=== PATIENT | female | born 1970 | race Caucasian/White ===

== ENCOUNTER → 2019-03-22 09:25 | Outpatient (CLI) | payer OTHER, SELFPAY ==
[2019-03-22 10:23] LABS: Add Manual Diff / Slide Review NO; Basophils Absolute Auto 0 /uL (0-100); Basophils Percent Auto 0.4 % (0-2); Eosinophils Absolute Auto 100 /uL (0-450); Eosinophils Percent Auto 0.7 % (2-4); Hematocrit 33.3 % (36-46); Lymphocytes Absolute Auto 1000 /uL (1100-4500); Lymphocytes Percent Auto 10.5 % (25-40); Mean Corpuscular HGB Conc 32.9 % (30-36); Mean Corpuscular Volume 72.9 fL (80-100); Monocytes Absolute Auto 1100 /uL (0-900); Monocytes Percent Auto 10.6 % (3-14); Neutrophils Absolute Auto 7800 /uL (1500-7000); Neutrophils Percent Auto 77.8 % (50-75); Platelet Count 374 X10^3/uL (150-400); Red Blood Cell Count 4.57 X10^6/uL (4.0-5.2); Red Cell Distribution Width 17.5 % (11.6-14.8)
[2019-03-22 10:37] LABS: Alanine Aminotransferase 25 IU/L (9-52); Albumin Globulin Ratio 1.4 (1.0-2.8); Alkaline Phosphatase 53 U/L (38-126); Aspartate Aminotransferase 16 IU/L (14-36); BUN Creatinine Ratio 18.3 (6-22); Bilirubin Total 0.3 mg/dL (0.2-1.3); Blood Urea Nitrogen 11 mg/dL (7-17); C-Reactive Protein Quant 5.9 mg/dL (<1.0); Calcium 8.9 mg/dL (8.4-10.2); Carbon Dioxide 29 mmol/L (22-32); Chloride 94 mmol/L (98-107); Estimated Glomerular Filt Rate > 60.0 mL/min (>60); Globulin 2.8 g/dL (1.7-4.1); Glucose 117 mg/dL (70-100); HEMOLYSIS < 15 (0-50); Lipase 549 U/L (23-300); Potassium 3.9 mmol/L (3.4-5.1); Sodium 135 mmol/L (137-145); Total Protein 6.8 g/dL (6.3-8.2)
[2019-03-22 10:58] LABS: Erythrocyte Sedimentation Rate 22 MM/HR (0-20)
== END ==
PROVIDERS: Visit Provider Physician Assistant
DX: R10.9 Unspecified abdominal pain (principal)
CPT/HCPCS: 36415; 80053; 83690; 85025; 85651; 86140

== ENCOUNTER → 2019-03-22 13:52 | Outpatient (CLI) | payer OTHER, SELFPAY ==
--- NOTE | 2019-03-22 14:54 | DI.CT.S_ITS ---
PROCEDURE: CT ABDOMEN PELVIS W CON INDICATIONS: abdominal pain TECHNIQUE: After the administration of oral and intravenous contrast, 5 mm thick sections acquired from the diaphragms to the symphysis. 5 mm thick coronal and sagittal reformats were performed. For radiation dose reduction, the following was used: automated exposure control, adjustment of mA and/or kV according to patient size. COMPARISON: None. FINDINGS: Image quality: Excellent. ABDOMEN: Lung bases: Lung bases are clear. Heart size is normal. Solid organs: Liver is normal in size and enhancement. Gallbladder contracted otherwise unremarkable. Biliary system is non-dilated. Pancreas enhances normally. Spleen is normal in size and enhancement. No adrenal nodules. Kidneys are normal in size and enhancement, without hydronephrosis. Peritoneum and bowel: Stomach is grossly unremarkable. There is a distended appearance of the distal small bowel/terminal ileum measuring up to 4 cm. There is suggestion of long segment wall thickening. Ill-defined of soft tissue attenuation seen on image 65 series 2 measuring 4 x 3 cm raises the possibility of mass although statistically, this represents collapsed bowel. Few scattered air-fluid levels. No definite transition point Large amount of stool is present in the colon. No free fluid or air. Nodes and vessels: No retroperitoneal or mesenteric adenopathy. Aorta and inferior vena cava are normal in caliber. Small fat containing ventral hernia. PELVIS: Bladder grossly unremarkable. Miscellaneous: No inguinal hernias or adenopathy. Bones: No suspicious bony lesions. No vertebral body compression fractures. IMPRESSION: Mildly dilated distal small bowel loop/terminal ileum measuring 4 cm in diameter. Scattered air-fluid levels. The appearance raises the possibility of early/developing bowel obstruction. Given long segment terminal ileal wall thickening, infectious or inflammatory bowel disease cannot be excluded. Please correlate clinically. Focal soft tissue masslike appearance present in the region of the distal small bowel (image 65 series 2) while this could represent collapsed bowel cannot entirely exclude soft tissue mass therefore a short interval repeat CT could be obtained for further assessment. Large amount of stool seen throughout the colon. Dictated by: Mir Bhagat M.D. on 03/22/2019 at 15:13 Approved by: Mir Bhagat M.D. on 03/22/2019 at 15:27
== END ==
PROVIDERS: PCP Internal Medicine; Visit Provider Physician Assistant
DX: R10.9 Unspecified abdominal pain (principal)
CPT/HCPCS: 36415; 74177; 80053; 83690; 85025; 85651; 86140; Q9967

== ENCOUNTER 2019-03-26 21:31 | Inpatient (IN) | payer OTHER, SELFPAY ==
[2019-03-26 21:39] VITALS: BP 150/91; PULSE 94; RESP 18; TEMP 36.4; O2SAT 98; BMI 23.6
--- NOTE | 2019-03-26 21:55 | DI.RAD.S_ITS ---
PROCEDURE: XR ACUTE ABDOMEN SERIES INDICATIONS: Abdominal pain TECHNIQUE: One view chest and two views of the abdomen were acquired. COMPARISON: [facility], US, US ABDOMEN COMPLETE, 03/26/2019, 22:42. [facility], CT, CT ABDOMEN PELVIS W CON, 03/22/2019, 14:37. FINDINGS: Surgical changes and devices: None. Chest: Lungs are clear. Heart size is normal. No pleural effusions. No pneumoperitoneum. Abdomen: Bowel gas pattern is nonspecific. Focal loop of mildly prominent bowel within the central abdomen is noted. No suspicious calcifications. Visualized solid organ contours appear normal. Bones: No suspicious bony lesions. IMPRESSION: Nonspecific bowel gas pattern with mildly prominent focal loop of bowel in the central abdomen. Developing ileus cannot be definitively excluded, but overall nonspecific. Dictated by: Ruth Majano M.D. on 03/27/2019 at 8:18 Approved by: Ruth Majano M.D. on 03/27/2019 at 8:19
--- NOTE | 2019-03-26 21:55 | DI.US.S_ITS ---
PROCEDURE: US ABDOMEN LIMITED INDICATIONS: SEVERE EPIGASTRIC PAIN, POSSIBLE SBO ON CT LAST WEEK TECHNIQUE: Real-time scanning was performed of the abdominal and retroperitoneal organs, with image documentation. COMPARISON: None. FINDINGS: Liver: Liver is normal in size and homogeneous in echotexture. Gallbladder: Gallbladder contains multiple small stones and sludge. Gallbladder is enlarged at 11.1 cm in long axis. No gallbladder wall thickening. Gallbladder wall measures 1.8 mm. No pericholecystic fluid. Biliary ducts: Intrahepatic bile ducts are non-dilated. Extrahepatic bile duct caliber measures 3.8 mm. Normal is 6-7 mm or less in diameter, or 10 mm or less post-cholecystectomy. Pancreas: Not visualized due to bowel gas and cannot be evaluated. IMPRESSION: 1. Cholelithiasis without sonographic evidence of cholecystitis. 2. No biliary ductal dilatation. Gallbladder hydrops. Dictated by: Joseline Oliveros MD, PhD on 03/27/2019 at 8:57 Approved by: Joseline Oliveros MD, PhD on 03/27/2019 at 8:59
--- NOTE | 2019-03-26 21:57 | ED_ITS ---
HPI - Abdominal Pain General Chief Complaint: Abdominal Pain Stated Complaint: thinks bowel obstruction Time Seen by Provider: 03/26/19 21:31 Source: patient and family Mode of arrival: ambulatory Limitations: no limitations History of Present Illness HPI narrative: 48-year-old female nonsmoker with benign medical history presents with multiple family members and significant worsening abdominal pain and nausea vomiting over the course of the day. She had been having symptoms for approximately 3 weeks when she saw her PCP and had a CT noting possible ileus versus early small bowel obstruction. She was encouraged to employ a a clear liquid diet and was doing okay and clear liquids but today advanced to solids at which point her abdominal pain became intense along with multiple episodes of nausea and vomiting. She is not dizzy nor weak or lightheaded. She denies any radiation of the pain. Her pain is made worse eating solids but she denies any further provocation. She denies any history of abdominal surgeries, injuries or history of the same MD complaint: abdominal pain Onset (ago): week(s) Pain Consistency: constant Location: epigastric Severity: moderate Quality: cramping and aching Radiation: none Relieving factors: eating Associated symptoms: nausea and vomiting Related Data Previous Rx's Medication Instructions Recorded ondansetron 4 mg disintegrating 4 mg PO Q6-8H #30 tab 03/22/19 tablet Allergies Allergy/AdvReac Type Severity Reaction Status Date / Time INGREDIENT: NKDA - NO KNOWN Allergy Unknown Uncoded 03/26/19 21:42 DRUG ALLERGIES Review of Systems Constitutional Denies chills, Denies fever(s), Denies lethargy and Denies weakness Eyes Denies change in vision, Denies eye discharge, Denies irritation and Denies loss of vision ENT Ears, Nose, Mouth, and Throat: Denies change in voice, Denies neck pain and Denies sore throat Cardiovascular Denies chest pain, Denies irregular heart rhythm, Denies lightheadedness, Denies palpitations, Denies dyspnea, Denies dyspnea on exertion and Denies orthopnea Respiratory Denies cough, Denies dyspnea, Denies dyspnea on exertion and Denies wheezing Gastrointestinal Gastrointestinal: Reports abdominal pain, Denies change in bowel habits, Denies diarrhea, Reports nausea and Reports vomiting Genitourinary Denies hematuria, Denies flank pain, Denies urinary incontinence and Denies urinary urgency Musculoskeletal Denies neck pain Integumentary/Breasts Denies pruritus, Denies erythema, Denies rash and Denies wounds Neurologic Denies confusion, Denies loss of vision and Denies weakness Psychiatric Denies anxiety, Denies confusion, Denies depression, Denies homicidal ideation and Denies suicidal ideation Endocrine Denies palpitations Hematologic/Lymphatic Denies easy bruising Allergic/Immunologic Denies wheezing PFSH Social History Smoking Status: Never smoker Social History Smoking Status: Never smoker Exam Narrative Exam Narrative: GENERAL: [48] year old patient appears stated age. Well- nourished, well-developed patient, in mild distress, rubbing her upper abdomen HEAD: Atraumatic. Normocephalic. EYES: Pupils equal round and reactive. Extraocular motions intact. No scleral icterus. No injection or drainage. ENT: Nose without bleeding, purulent drainage. Throat without erythema, tonsillar hypertrophy or exudate. Airway patent. NECK: Trachea midline. Non tender CARDIOVASCULAR: Regular rate and rhythm without murmurs, gallops, or rubs. RESPIRATORY: Clear to auscultation. Breath sounds equal bilaterally. No wheezes, rales, or rhonchi. GASTROINTESTINAL: Abdomen soft, non-tender, nondistended. EXTREMITIES: No edema or joint tenderness. BACK: Nontender without deformity or crepitance. No flank tenderness. NEURO: AOx3. SKIN: No rash or erythema of visible areas Initial Vital Signs Initial Vital Signs: Vital Signs Temperature 97.5 F L 03/26/19 21:39 Pulse Rate 94 H 03/26/19 21:39 Respiratory Rate 18 03/26/19 21:39 Blood Pressure 150/91 H 03/26/19 21:39 Pulse Oximetry 98 03/26/19 21:39 Course Orders Ordered: ED Orders 03/26/19 21:55 US abdomen limited Stat XR acute abdomen series Stat 03/26/19 22:05 Complete Blood Count AUTO DIFF Stat Comprehensive Metabolic Panel Stat Lactate (Lactic Acid) Stat Lipase Stat 03/27/19 00:22 Lipase Stat 03/27/19 06:00 Basic Metabolic Panel Stat Complete Blood Count AUTO DIFF Stat Sodium Chloride (Normal Saline 0.9%) 1,000 mls @ 150 mls/hr IV CONT THO Last Admin: 03/26/19 22:22 Dose: 150 mls/hr Ondansetron HCl (Zofran) 4 mg IV Q4HR PRN PRN Reason: Nausea And Vomiting Last Admin: 03/26/19 22:21 Dose: 4 mg Discontinued Medications Hydromorphone HCl (Dilaudid) 0.5 mg IV NOW ONE Stop: 03/26/19 21:56 Last Admin: 03/26/19 22:22 Dose: 0.5 mg Pantoprazole Sodium (Protonix) 40 mg IV NOW ONE Stop: 03/26/19 21:56 Last Admin: 03/26/19 22:21 Dose: 40 mg Consultations Consultation #1: discussion with Dr. Calvillo, not surgicval candidate right now, will allow pancrease to calm down. Keep NPO, pain control, official consult please, admit to hospitalist Consultation #2: Dr. Cates happy to admit Vital Signs - 8 hr 03/26/19 21:39 Temperature 97.5 F L Pulse Rate 94 H Respiratory Rate 18 Blood Pressure 150/91 H Pulse Oximetry 98 MDM - Abdominal Pain Lab Data Result diagrams: 03/26/19 22:05 03/26/19 22:05 Lab Results 03/26/19 03/26/19 03/26/19 Range/Units 22:05 22:05 22:05 WBC 8.3 (4.5-11.0) X10^3/uL RBC 4.64 (4.0-5.2) X10^6/uL Hgb 11.0 L (12.0-16.0) g/dL Hct 33.3 L (36-46) % MCV 71.7 L (80-100) fL MCH 23.6 L (26-34) PG MCHC 32.9 (30-36) % RDW 17.1 H (11.6-14.8) % Plt Count 512 H (150-400) X10^3/uL Neut % (Auto) 68.3 (50-75) % Lymph % (Auto) 21.3 L (25-40) % Greenlee % (Auto) 9.2 (3-14) % Eos % (Auto) 0.9 L (2-4) % Baso % (Auto) 0.3 (0-2) % Neut # (Auto) 5700 (4958-7551) /uL Lymph # (Auto) 1800 (7779-6405) /uL Greenlee # (Auto) 800 (0-900) /uL Eos # (Auto) 100 (0-450) /uL Baso # (Auto) 0 (0-100) /uL Sodium 135 L (137-145) mmol/L Potassium 3.3 L (3.4-5.1) mmol/L Chloride 96 L (98-107) mmol/L Carbon Dioxide 24 (22-32) mmol/L BUN 8 (7-17) mg/dL Creatinine 0.70 (0.52-1.04) mg/dL Estimated GFR > 60.0 (>60) mL/min BUN/Creatinine Ratio 11.4 (6-22) Glucose 110 H (70-100) mg/dL Lactate 1.1 (0.7-2.1) mmol/L Calcium 9.1 (8.4-10.2) mg/dL Total Bilirubin 0.3 (0.2-1.3) mg/dL AST 16 (14-36) IU/L ALT 20 (9-52) IU/L Alkaline Phosphatase 67 (38-126) U/L Total Protein 7.1 (6.3-8.2) g/dL Albumin 4.2 (3.5-5.0) g/dL Globulin 2.9 (1.7-4.1) g/dL Albumin/Globulin Ratio 1.4 (1.0-2.8) Lipase 706 H (23-300) U/L Imaging Data AAS: Radiologist's impression: Scattered atelectasis, nonspecific air-fluid levels US - abdomen: Radiologist's impression: Gallbladder sludge and stones, without evidence of acute cholecystitis MDM Narrative Medical decision making narrative: Patient with 3 weeks of gradually worsening abdominal pain with nausea and vomiting. CT a few days ago noted nonspecific findings, possible ileus. Patient had improved on clear liquids and then today advanced her diet and symptoms drastically worsened. Patient is very tender in the epigastrium and right upper quadrant. Lab abnormalities consistent with pancreatitis, although ultrasound suggests sludge and stones there is no evidence of cholecystitis, gallbladder and liver labs are normal. Patient requires hospitalization due to her NPO status, need for IV pain meds and antiemetics as well as likely surgical intervention once pancreatitis resolves Discharge Plan Departure Clinical Impression: Acute hypokalemia Acute pancreatitis Qualifiers: Pancreatitis type: unspecified pancreatitis type Acute pancreatitis complication: unspecified Qualified Code(s): K85.90 - Acute pancreatitis without necrosis or infection, unspecified Prescriptions: No Action ondansetron 4 mg tablet,disintegrating 4 mg PO Q6-8H Qty: 30 RF: 2 Referrals: Hayley Carlson ARNP [Primary Care Provider] - Admit Date/Time: 03/27/19 00:37 Admit Provider: Wen Cates
[2019-03-26 22:16] LABS: Add Manual Diff / Slide Review NO; Basophils Absolute Auto 0 /uL (0-100); Basophils Percent Auto 0.3 % (0-2); Eosinophils Absolute Auto 100 /uL (0-450); Eosinophils Percent Auto 0.9 % (2-4); Hematocrit 33.3 % (36-46); Lymphocytes Absolute Auto 1800 /uL (1100-4500); Lymphocytes Percent Auto 21.3 % (25-40); Mean Corpuscular HGB Conc 32.9 % (30-36); Mean Corpuscular Hemoglobin 23.6 PG (26-34); Mean Corpuscular Volume 71.7 fL (80-100); Monocytes Absolute Auto 800 /uL (0-900); Monocytes Percent Auto 9.2 % (3-14); Neutrophils Absolute Auto 5700 /uL (1500-7000); Neutrophils Percent Auto 68.3 % (50-75); Platelet Count 512 X10^3/uL (150-400); Red Blood Cell Count 4.64 X10^6/uL (4.0-5.2); Red Cell Distribution Width 17.1 % (11.6-14.8); White Blood Cell Count 8.3 X10^3/uL (4.5-11.0)
[2019-03-26] MEDS: PANTOPRAZOLE 40 MG VIAL IV (22:21)
[2019-03-26] MEDS: ONDANSETRON 4 MG/2 ML INJ IV (22:21)
[2019-03-26] MEDS: HYDROMORPHONE 0.5 MG INJ IV (22:22)
[2019-03-26] MEDS: SODIUM CHLORIDE 0.9% 1,000 ML 150 ML IV (22:22)
[2019-03-26 22:25] LABS: Alanine Aminotransferase 20 IU/L (9-52); Albumin 4.2 g/dL (3.5-5.0); Albumin Globulin Ratio 1.4 (1.0-2.8); Alkaline Phosphatase 67 U/L (38-126); Aspartate Aminotransferase 16 IU/L (14-36); BUN Creatinine Ratio 11.4 (6-22); Bilirubin Total 0.3 mg/dL (0.2-1.3); Blood Urea Nitrogen 8 mg/dL (7-17); Calcium 9.1 mg/dL (8.4-10.2); Carbon Dioxide 24 mmol/L (22-32); Chloride 96 mmol/L (98-107); Estimated Glomerular Filt Rate > 60.0 mL/min (>60); Globulin 2.9 g/dL (1.7-4.1); Glucose 110 mg/dL (70-100); HEMOLYSIS < 15 (0-50); Lactate (Lactic Acid) 1.1 mmol/L (0.7-2.1); Lipase 706 U/L (23-300); Potassium 3.3 mmol/L (3.4-5.1); Sodium 135 mmol/L (137-145); Total Protein 7.1 g/dL (6.3-8.2)
[2019-03-27] VITALS (11 sets, daily range): BP systolic 98–127; BP diastolic 60–78; PULSE 79–101; RESP 9–21; TEMP 36.2–38; O2SAT 90–100; BMI 23.6
--- NOTE | 2019-03-27 | DI.RAD.S_ITS ---
PROCEDURE: XR CHOLANGIOGRAM OPERATIVE INDICATIONS: MIRIAN COMPARISON: None. FINDINGS: Biliary ducts: The surgeon injected contrast into the biliary ducts after cannulation of the cystic duct stump. Visualized intra- and extrahepatic bile ducts are normal in caliber, without strictures. No intraluminal filling defects to suggest retained ductal stones or sludge. No evidence for iatrogenic ductal injury. Duodenum: Contrast flows promptly through the sphincter of Oddi into the duodenum, which appears normal in caliber. IMPRESSION: No comment bile duct dilatation or intraluminal filling defect. Patent common bile duct. Dictated by: Roni Ulloa M.D. on 03/28/2019 at 9:36 Approved by: Roni Ulloa M.D. on 03/28/2019 at 9:37
--- NOTE | 2019-03-27 | PATH_ITS ---
[facility] Accession Number: [id number] . 01 Material submitted: . gallbladder - GALLBLADDER . 02 Diagnosis: Gallbladder: Chronic cholecystitis with no calculi identified. Benign lymph node. MRV/03/30/2019 . 02 Electronically signed: . Coy Varner MD, Pathologist NPI- [id number] . 01 Gross description: . Received in formalin, labeled gallbladder, is an opened gallbladder (length-8.5 cm, diameter-2.8 cm) with saldivar-green smooth shiny serosa and a patent cystic duct. A possible lymph node (0.7 x 0.4 x 0.2 cm) is identified. The lumen contains dark green gelatinous bile. No calculi are present. The mucosa is dark green smooth and flat. The wall is up to 0.1 cm thick. No nodules, masses or lesions are identified. Section code: (A1) cystic duct resection margin and two serial sections from the body; (A2) two longitudinal sections from the fundus; (A3) one intact lymph node. ([id number]) /MRV . 02 Pathologist provided ICD-10: K81.1 . 02 CPT . 948217 Performed at: [address] [facility] [address] [facility], [place], [place] [id number] MD Brett Dean MD Phone: [phone] Performed at: 02 [facility] [address] [place], [place] [id number] MD Aranza Jara MD Phone: [phone]
--- NOTE | 2019-03-27 03:06 | PC.NURSE ---
Addendum entered by Nadja Betancourt R.N. 03/27/19 06:15: 0600-Dr Prieto in to see patient, she denies abdominal pain or nausea at this time. Continue NPO. Original Note: 0215-Patient admitted to ICU, A/O x4, ambulated to BR without difficulty. Denies abdominal pain or nausea. States I feel much better after what they gave me over there NS @ 150ml/hr, VSS. Low fall risk, call light and belongings near patient.
[2019-03-27] MEDS: SODIUM CHLORIDE 0.9% 1,000 ML 150 ML IV ×3 (05:04→18:07)
--- NOTE | 2019-03-27 06:06 | PM.CN ---
History of Present Illness Date Patient Seen: 03/27/19 Time Patient Seen: 06:07 Chief complaint: thinks bowel obstruction Narrative: 48-year-old white female patient has had intermittent abdominal pain now for a week to 10 days she was placed on clear liquids had a CT scan I believe about a week ago which revealed either an ileus or possible partial small-bowel obstruction she tried eat solid foods yesterday and came to the emergency department after severe abdominal pain and vomiting recurred in the emergency department she has had an ultrasound which confirms cholelithiasis with stones and sludge. Other positive finding is an elevated lipase of 700. So she has gallstone pancreatitis. She is admitted on the medical service on IV fluids and bowel rest. [facility] Social History household members: family Smoking Status: Never smoker Social History household members: family Smoking Status: Never smoker Meds Home Medications Medication Instructions Recorded Confirmed Type No Known Home Medications 03/27/19 03/27/19 History Allergies Allergy/AdvReac Type Severity Reaction Status Date / Time INGREDIENT: NKDA - NO KNOWN Allergy Unknown Uncoded 03/26/19 21:42 DRUG ALLERGIES Review of Systems Review of Systems All systems reviewed & are unremarkable except as noted in HPI and below Exam Vital Signs (past 8 hours): - 03/27/19 01:37 03/27/19 02:15 Temperature 99.3 F Pulse Rate 79 79 Respiratory Rate 16 20 Blood Pressure 120/74 Blood Pressure [Right Arm] 111/70 Pulse Oximetry 97 100 Oxygen Delivery Method Room Air Narrative Exam Narrative: Patient is very pleasant lady having no abdominal pain at the moment. Lungs are clear Heart regular rhythm no murmur Abdomen is not distended there are no masses palpated the liver and spleen are not palpable She actually has no abdominal tenderness at this time. Objective Labs Result Diagrams: 03/26/19 22:05 03/26/19 22:05 Labs: Laboratory Results - last 24 hr 03/26/19 03/26/19 03/26/19 22:05 22:05 22:05 WBC 8.3 RBC 4.64 Hgb 11.0 L Hct 33.3 L MCV 71.7 L MCH 23.6 L MCHC 32.9 RDW 17.1 H Plt Count 512 H Neut % (Auto) 68.3 Lymph % (Auto) 21.3 L Stephenson % (Auto) 9.2 Eos % (Auto) 0.9 L Baso % (Auto) 0.3 Neut # (Auto) 5700 Lymph # (Auto) 1800 Stephenson # (Auto) 800 Eos # (Auto) 100 Baso # (Auto) 0 Sodium 135 L Potassium 3.3 L Chloride 96 L Carbon Dioxide 24 BUN 8 Creatinine 0.70 Estimated GFR > 60.0 BUN/Creatinine Ratio 11.4 Glucose 110 H Lactate 1.1 Calcium 9.1 Total Bilirubin 0.3 AST 16 ALT 20 Alkaline Phosphatase 67 Total Protein 7.1 Albumin 4.2 Globulin 2.9 Albumin/Globulin Ratio 1.4 Lipase 706 H Assessment & Plan Assessment & Plan narrative: Patient with gallstone pancreatitis resting comfortably in bed at this time. Amylase of 700 actually may be falling at this time. She has had this illness ongoing for about 10 days. Patient has been NPO since about 9:00 p.m. last night. I will discuss this case with 1 of my associates who may elect to do a laparoscopic cholecystectomy today at his discretion. I have explained this to the patient she understands. We are keeping the patient NPO
[2019-03-27 09:09] LABS: Add Manual Diff / Slide Review NO; Basophils Absolute Auto 0 /uL (0-100); Basophils Percent Auto 0.3 % (0-2); Eosinophils Absolute Auto 0 /uL (0-450); Eosinophils Percent Auto 0.5 % (2-4); Hematocrit 30.4 % (36-46); Hemoglobin 9.7 g/dL (12.0-16.0); Lymphocytes Absolute Auto 1400 /uL (1100-4500); Lymphocytes Percent Auto 19.9 % (25-40); Mean Corpuscular Hemoglobin 23.7 PG (26-34); Mean Corpuscular Volume 74.2 fL (80-100); Monocytes Absolute Auto 700 /uL (0-900); Monocytes Percent Auto 9.4 % (3-14); Neutrophils Absolute Auto 5000 /uL (1500-7000); Neutrophils Percent Auto 69.9 % (50-75); Platelet Count 445 X10^3/uL (150-400); Red Cell Distribution Width 16.9 % (11.6-14.8); White Blood Cell Count 7.1 X10^3/uL (4.5-11.0)
--- NOTE | 2019-03-27 09:14 | CM.DANOTE ---
DCP: Case received, EMR reviewed and met with patient. Introduced self and role. Was able to obtain baseline health information from patient. DCP template completed with information currently available. Patient is a 48 year old female who admitted early this morning to the care of the hospitalist team. PCP: VICK Lomas. Payer: confirmed: [facility]. Patient came to the hospital via family vehicle secondary to abdominal pain. She had been ill for several days, and came in due to severity of discomfort, and nausea/vomiting. Patient holds diagnosis of Pancreatitis secondary to gallstones. She is here for bowel rest and IV fluids. Met with patient in her room, pleasant. Alert and oriented. She lives here in [place]. Her , Brett, is out of town, he is a commercial relationship manager. Her daughter just graduated from nursing school, and will be helping patient out when she goes home. She also has a 16 year old daughter that lives at home. Patient stated, I'm normally healthy, I haven't been to the doctors in a long time. She stated, she had had these symptoms for several days, before she decided to go the ER. P: DCP to continue to follow closely. She should be able to go home when she is medically stable. Vera Muñoz RN/Clinical Care Coordinator
[2019-03-27 09:16] LABS: Alanine Aminotransferase 57 IU/L (9-52); Albumin 3.2 g/dL (3.5-5.0); Albumin Globulin Ratio 1.2 (1.0-2.8); Alkaline Phosphatase 58 U/L (38-126); Amylase 83 U/L (30-110); Aspartate Aminotransferase 68 IU/L (14-36); BUN Creatinine Ratio 8.3 (6-22); Bilirubin Total 0.3 mg/dL (0.2-1.3); Blood Urea Nitrogen 5 mg/dL (7-17); Calcium 8.2 mg/dL (8.4-10.2); Carbon Dioxide 25 mmol/L (22-32); Chloride 103 mmol/L (98-107); Estimated Glomerular Filt Rate > 60.0 mL/min (>60); Globulin 2.6 g/dL (1.7-4.1); Glucose 96 mg/dL (70-100); HEMOLYSIS < 15 (0-50); Lipase 439 U/L (23-300); Potassium 4.2 mmol/L (3.4-5.1); Sodium 136 mmol/L (137-145); Total Protein 5.8 g/dL (6.3-8.2)
--- NOTE | 2019-03-27 14:25 | PM.PREOP ---
Pre-operative Note Interval Note History & Physical reviewed/Exam performed by Physician: Yes Changes to H&P: No H&P completed within 30 days and has changed as indicated here:: Reviewed and exam and patient. No changes. She is not tender at this time. Plan a lap choly and cholangiogram with a possible open procedure. I have discussed this with the patient including risks of bleeding, infection, hernia, injury to internal organs or ducts which would require major operation to repair, bile leakage, possible postop ERCP either for bile leakage or for common duct stones. She appeared to understand and wished to proceed.
--- NOTE | 2019-03-27 18:07 | PM.HP.1 ---
History of Present Illness Date Patient Seen: 03/27/19 Time Patient Seen: 13:07 Chief complaint: thinks bowel obstruction Narrative: This is a new patient to me. She is scheduled to be a new patient with Justin HICKMAN. I reviewed her chart and diagnostic testing done so far. Patient states she is feeling much better than she did last night. She has been NPO since 9:00 p.m. last night. Patient presented to the ER via private car with complaints of intractable nausea and vomiting. She has been ill for the last 3 weeks and really unable to eat any food. She has lost 15 lb. She 1st had symptoms possibly in November were she had a few days of vomiting and she thought that she does ate something bad. She then had another episode in January of nausea and vomiting and thought this was related to prior on that she ate she was fine for a day and that she tried shrimp and had nausea and vomiting and thought it was an allergy to shellfish. She did not have a history of this. Then over the last 3 weeks she has had persistent nausea and vomiting and unable to eat solid foods. She was seen in urgent care recently underwent lab work and CT scan and there was thought to be a possible partial bowel obstruction. The patient then had no bowel movement for 10 days and took MiraLax and had 3 days of significant amount of stool output and then felt somewhat better and tried to eat a few bites of food last night but had severe onset abdominal pain, nausea and vomiting and presented to the emergency room. She has had no fevers she has had no blood in her stool she has not had any diarrhea and no mucus her stool. She otherwise has been healthy. Her past medical history: 1. 2003 superficial venous thrombosis twice in her lower legs. She stopped oral contraceptive pill at this time. 2. Varicose veins 3. Normal spontaneous vaginal deliveries x3 Medication: Occasionally takes [id number] sleep aid from [employer] but no prescription medications Allergies: Codeine causes vomiting Past surgical history: 1. Tonsillectomy and adenoidectomy 2. Lower extremity varicose vein procedure Health related behavior: She does not smoke and has never been a regular smoker. She drinks alcohol only socially. She does not use any street drugs. She does not take regular NSAIDs Family history: 1. Factor 5 Leiden deficiency in her daughter who is heterozygous for this as well as heterozygous for the MTHFR. No known clotting disorders 2. Maternal grandfather with cholecystectomy secondary to biliary disease 3. Father cholecystectomy secondary to cholelithiasis Review of systems: No fever but patient has been constipated and has lost 15 lb due to inability to eat No headaches No vision changes No rashes No chills or myalgias The remainder of 12 point review of systems is negative Patient History Social History household members: family Smoking Status: Never smoker Family & Social History Social History: household members family Prior Living Arrangements House Safety & Behavioral: Feels Safe in Current Yes Environment Been Physically Hurt or No Threatened By a Person Suicidal Ideation Description None Suicide Plan Description No Plan Tobacco & Substance use: Smoking Status Never smoker alcohol intake frequency a few times a month Substance Use Type does not use Meds Home Medications Medication Instructions Recorded Confirmed Type No Known Home Medications 03/27/19 03/27/19 History Allergies Allergy/AdvReac Type Severity Reaction Status Date / Time INGREDIENT: NKDA - NO KNOWN Allergy Unknown Uncoded 03/26/19 21:42 DRUG ALLERGIES Review of Systems Review of Systems All systems reviewed & are unremarkable except as noted in HPI and below Exam Vital Signs (past 8 hours): - 03/27/19 15:35 Temperature 100.4 F H Pulse Rate 99 H Respiratory Rate 20 Blood Pressure 125/78 Pulse Oximetry 98 Oxygen Delivery Method Room Air Oxygen Flow Rate 0 Narrative Exam Narrative: Patient is alert and oriented x3 in no apparent distress. Vital signs are stable. HEENT: Unremarkable. No mucosal lesions Neck: Supple without adenopathy or thyromegaly. No masses Chest: Clear to auscultation without wheezes rhonchi or crackles Cor: Regular rate and rhythm without murmur Abdomen: Positive bowel sounds x4, nondistended, tender right upper quadrant and mid epigastric with some guarding but no rebound tenderness no peritoneal signs Extremities: No edema, pulses intact Skin: No rash Neurologic exam nonfocal Objective Labs Result Diagrams: 03/27/19 06:35 03/27/19 06:35 Labs: Laboratory Results - last 24 hr 03/26/19 03/26/19 03/26/19 22:05 22:05 22:05 WBC 8.3 RBC 4.64 Hgb 11.0 L Hct 33.3 L MCV 71.7 L MCH 23.6 L MCHC 32.9 RDW 17.1 H Plt Count 512 H Neut % (Auto) 68.3 Lymph % (Auto) 21.3 L [place] % (Auto) 9.2 Eos % (Auto) 0.9 L Baso % (Auto) 0.3 Neut # (Auto) 5700 Lymph # (Auto) 1800 [place] # (Auto) 800 Eos # (Auto) 100 Baso # (Auto) 0 Sodium 135 L Potassium 3.3 L Chloride 96 L Carbon Dioxide 24 BUN 8 Creatinine 0.70 Estimated GFR > 60.0 BUN/Creatinine Ratio 11.4 Glucose 110 H Lactate 1.1 Calcium 9.1 Total Bilirubin 0.3 AST 16 ALT 20 Alkaline Phosphatase 67 Total Protein 7.1 Albumin 4.2 Globulin 2.9 Albumin/Globulin Ratio 1.4 Amylase Lipase 706 H Nasal Screen MRSA (PCR) 03/27/19 03/27/19 03/27/19 06:35 06:35 08:25 WBC 7.1 RBC 4.10 Hgb 9.7 L Hct 30.4 L MCV 74.2 L MCH 23.7 L MCHC 32.0 RDW 16.9 H Plt Count 445 H Neut % (Auto) 69.9 Lymph % (Auto) 19.9 L [place] % (Auto) 9.4 Eos % (Auto) 0.5 L Baso % (Auto) 0.3 Neut # (Auto) 5000 Lymph # (Auto) 1400 [place] # (Auto) 700 Eos # (Auto) 0 Baso # (Auto) 0 Sodium 136 L Potassium 4.2 Chloride 103 Carbon Dioxide 25 BUN 5 L Creatinine 0.60 Estimated GFR > 60.0 BUN/Creatinine Ratio 8.3 Glucose 96 Lactate Calcium 8.2 L Total Bilirubin 0.3 AST 68 H ALT 57 H Alkaline Phosphatase 58 Total Protein 5.8 L Albumin 3.2 L Globulin 2.6 Albumin/Globulin Ratio 1.2 Amylase 83 Lipase 439 H Nasal Screen MRSA (PCR) Negative for mrsa Assessment & Plan Assessment & Plan narrative: 48-year-old female admitted for intractable nausea vomiting secondary to gallstone pancreatitis Patient has adequate pain control. Appreciate surgery input and plan for surgery. She will continue NPO Recheck labs in a.m. Continue to monitor closely Full code
--- NOTE | 2019-03-27 18:12 | PC.NURSE ---
1600 - Pt resting in bed. Continues to deny pain at rest. C/o dry mouth. Requesting ice chips. Oral swab provided. Call placed to OR. On schedule for approximately 1944. Pt and family updated. Denies further need. Call light in reach.
--- NOTE | 2019-03-27 20:18 | PC.NURSE ---
2015 - Report given to Lisa, in PACU. Pt taken to OR. Pt and PACU staff aware that pt will transfer to room 228 post-op.
[2019-03-27] MEDS: LACTATED RINGERS 1,000 ML 42 ML IV (20:20)
[2019-03-27] MEDS: CEFOTETAN 2 GM/50 ML PIGGYBACK IV (21:08)
--- NOTE | 2019-03-27 21:42 | SUR.OPER ---
Supine on padded OR bed, head on pillow, safety belt at thigh, BILATERAL ARMS ON ARMBOARDS. Legs uncrossed. Padded footboard in place. Tape over blanket to secure lower legs.
[2019-03-27] MEDS: BUPIVACAINE 0.5% (PF) VIAL 30 ML INJ (21:52)
[2019-03-27] MEDS: IOPAMIDOL 50 ML VIAL INJ (21:52)
--- NOTE | 2019-03-27 23:27 | PM.OP.1 ---
Operative Date/Time/Diagnoses Date of procedure: 03/27/19 Time of procedure: 23:10 Pre-op diagnosis: Biliary pancreatitis Post-op diagnosis: same (Pancreatitis with gallstones. Normal cholangiogram.) Procedure & Clinicians Procedure: Laparoscopic cholecystectomy with intraoperative cholangiogram Same procedure as scheduled: Yes Indications: Patient with pancreatitis. Found to have gallstones. Presumptively biliary pancreatitis. Surgeon: Romeo Herbert Click Yes if Unassisted: Yes Anesthesia Type: General Operative Notes Findings: Edema in the tissues surrounding the gallbladder and pancreas. Adhesions of omentum to the wall of the gallbladder. A very small ductal system without filling defect and free flow into the duodenum. Closure Type: primary Specimen(s): other (Gallbladder) Estimated Blood Loss (mL): 5 Blood products transfused: none Procedure in detail: The patient was placed supine on the operating room table and underwent general endotracheal anesthesia. The patient was prepped and draped in the usual fashion. Local anesthetic was infiltrated near the umbilicus and curvilinear incision made and carried down through fascia into the peritoneal cavity. Stay sutures of 0 Vicryl were placed in the fascia. A 12 mm port was placed. The abdomen was insufflated. The patient was repositioned. Local anesthetic was infiltrated in 3 areas under the right costal margin and 3 small incisions made followed by placing 3 5 mm ports under direct laparoscopic camera vision internally. The gallbladder was grasped and elevated. Dissection was begun near its end. There were adhesions of omentum loosely attached to the edematous gallbladder wall. These were taken down with cautery and blunt and sharp dissection. Further dissection revealed a doctor structure singular nature going directly over gallbladder. It was from surrounding structures. A clip was placed on its junction with the gallbladder and a small desi was intentionally made in the cyst duct. A cholangiocatheter was inserted and cholangiogram performed. Is very difficult to inject and it turned out the reason was that the caliber of the ducts was quite small. There is free flow into the duodenum. There were no filling defects. The cholangiocatheter was removed and 3 clips were placed on the duct and it was divided leaving those 3 in the patient. A vascular structure singular nature going directly gallbladder was from surrounding structures and 3 clips were placed across it. It was divided leaving 2 in the patient. There was 1 other gathering of tissue on which I placed a single clip and divided it and leaving the clip in the patient. This was done in case there was a vascular structure within it. The gallbladder was then dissected from its bed in the liver using cautery. There was no spillage. It was detached and removed through the umbilical port. the right upper quadrant was irrigated and suctioned free of fluid. Meticulous hemostasis was achieved. The ports were all removed. The port sites were all irrigated. The stay sutures at the umbilicus were elevated. A 2 0 PDS suture was placed between them. The Vicryl and PDS sutures were then tied. The skin in all areas was closed with interrupted 4 0 Vicryl subcuticular stitches. Steri-Strips and Mastisol were applied. Band-Aids were placed and the patient was awakened, extubated and taken to the recovery area in good condition. Due to the fact there were very few stones and the ductal structures were small, it led me to wonder if her pancreatitis have the another source. Will order lipid panel for the morning. The patient does not take any large amounts of alcohol and is on no medications known to cause pancreatitis. Complications: none Condition: stable Disposition: PACU
--- NOTE | 2019-03-27 23:32 | SUR.PHASEI ---
PACU post op note: VSS, O2 sat WNL on room air. Abdominal bandaids CDI without drainage noted. No complaints of pain or nausea. Tolerating ice chips. IV site patent. Patient states that she just want s to rest.
[2019-03-28] VITALS (12 sets, daily range): BP systolic 109–118; BP diastolic 66–76; PULSE 83–99; RESP 16–18; TEMP 36.3–37.2; O2SAT 96–100
[2019-03-28] MEDS: DEXTROSE 5%-0.45% NS 1,000 ML 125 ML IV ×2 (00:25→08:20)
[2019-03-28 05:20] LABS: Add Manual Diff / Slide Review NO; Basophils Absolute Auto 0 /uL (0-100); Basophils Percent Auto 0.1 % (0-2); Eosinophils Absolute Auto 0 /uL (0-450); Hematocrit 30.6 % (36-46); Hemoglobin 9.9 g/dL (12.0-16.0); Lymphocytes Absolute Auto 400 /uL (1100-4500); Lymphocytes Percent Auto 5.4 % (25-40); Mean Corpuscular HGB Conc 32.5 % (30-36); Mean Corpuscular Volume 73.8 fL (80-100); Monocytes Absolute Auto 200 /uL (0-900); Neutrophils Absolute Auto 6700 /uL (1500-7000); Neutrophils Percent Auto 91.5 % (50-75); Platelet Count 418 X10^3/uL (150-400); Red Blood Cell Count 4.14 X10^6/uL (4.0-5.2); Red Cell Distribution Width 17.5 % (11.6-14.8); White Blood Cell Count 7.3 X10^3/uL (4.5-11.0)
[2019-03-28 05:29] LABS: Alanine Aminotransferase 110 IU/L (9-52); Albumin 3.3 g/dL (3.5-5.0); Albumin Globulin Ratio 1.3 (1.0-2.8); Alkaline Phosphatase 82 U/L (38-126); Aspartate Aminotransferase 127 IU/L (14-36); Bilirubin Total 0.5 mg/dL (0.2-1.3); Blood Urea Nitrogen 7 mg/dL (7-17); Calcium 8.1 mg/dL (8.4-10.2); Carbon Dioxide 21 mmol/L (22-32); Chloride 99 mmol/L (98-107); Estimated Glomerular Filt Rate > 60.0 mL/min (>60); Globulin 2.5 g/dL (1.7-4.1); Glucose 202 mg/dL (70-100); HEMOLYSIS < 15 (0-50); Potassium 3.9 mmol/L (3.4-5.1); Sodium 132 mmol/L (137-145); Total Protein 5.8 g/dL (6.3-8.2)
[2019-03-28 05:33] LABS: Amylase 127 U/L (30-110); Cholesterol 120 mg/dL (140-199); HDL Cholesterol 34 mg/dL (40-60); LDL Cholesterol Calculated 75 mg/dL (<100); Lipase 540 U/L (23-300); Triglycerides 57 mg/dL (35-150)
[2019-03-28] MEDS: ENOXAPARIN 40 MG/0.4 ML SYRINGE SUBCUT (08:22)
[2019-03-28] MEDS: ACETAMINOPHEN 325 MG TABLET 650 MG PO (08:23)
--- NOTE | 2019-03-28 08:41 | PC.NURSE ---
PATIENT IN GOOD SPIRITS. STATES SHE FEELS SO MUCH BETTER. NO NAUSEA. TAKING IN CLEAR LIQUID BREAKFAST TRAY SLOWLY. TOLERATING WELL. ABD PAIN 2/10 ACCEPTED TYLENOL. INDEP IN ROOM. APPLIED SCD'S NOW THAT BACK TO BED. ENCOURAGED AMB IN HALLS.
[2019-03-28] MEDS: KETOROLAC 30 MG/ML VIAL IV ×2 (14:15→21:12)
[2019-03-28] MEDS: SODIUM CHLORIDE 0.9% 1,000 ML 125 ML IV (14:17)
--- NOTE | 2019-03-28 18:38 | P.PN_ITS ---
Subjective Date Patient Seen: 03/28/19 Time Patient Seen: 13:34 Interval history: The patient underwent laparoscopic-assisted cholecystectomy last night. Spoke with Dr. Herbert today. Interesting that her arm ducts were not dilated there by not suggesting common bile duct stone that cause the gallstone pancreatitis. She did have sick dark fluid and thickened gallbladder wall. She did have stones but there were not many of them. It did not look like an acute cholecystitis however certainly could have been more acute 3 weeks ago when her symptoms 1st started. The patient is tolerating clears without any nausea without any vomiting she has only taken Tylenol for pain and is feeling much better. She states that she is feeling better than she has felt in weeks. She had a bowel movement last night that was small that was normal prior to the surgery but has not had any since then. Twelve point review systems is otherwise negative Exam Vital Signs (past 8 hours): - 03/28/19 12:43 03/28/19 15:00 03/28/19 15:52 Temperature 99.0 F 98.5 F Pulse Rate 84 87 Respiratory Rate 16 18 Blood Pressure 117/72 117/76 Pulse Oximetry 100 98 99 Oxygen Delivery Method Room Air Oxygen Flow Rate 0 Narrative Exam Narrative: Afebrile vital signs are stable HEENT unremarkable, mucous membranes moist and pink, bright and alert no apparent distress Neck: Supple Chest: Clear to auscultation without wheezes rhonchi or crackles Cor: Regular rate and rhythm without murmur Abdomen: Positive bowel sounds x4 she is tender in the right upper quadrant and midepigastrium but improved from yesterday and no guarding today Extremities: No edema pulses intact Objective Labs Result Diagrams: 03/28/19 04:50 03/28/19 04:50 Labs: Laboratory Results - last 24 hr 03/28/19 03/28/19 03/28/19 04:50 04:50 04:50 WBC 7.3 RBC 4.14 Hgb 9.9 L Hct 30.6 L MCV 73.8 L MCH 24.0 L MCHC 32.5 RDW 17.5 H Plt Count 418 H Neut % (Auto) 91.5 H D Lymph % (Auto) 5.4 L [place] % (Auto) 3.0 Eos % (Auto) 0.0 L Baso % (Auto) 0.1 Neut # (Auto) 6700 Lymph # (Auto) 400 L [place] # (Auto) 200 Eos # (Auto) 0 Baso # (Auto) 0 Sodium 132 L Potassium 3.9 Chloride 99 Carbon Dioxide 21 L BUN 7 Creatinine 0.50 L Estimated GFR > 60.0 BUN/Creatinine Ratio 14.0 Glucose 202 H D Calcium 8.1 L Total Bilirubin 0.5 AST 127 H ALT 110 H Alkaline Phosphatase 82 Total Protein 5.8 L Albumin 3.3 L Globulin 2.5 Albumin/Globulin Ratio 1.3 Triglycerides Cholesterol LDL Cholesterol, Calc HDL Cholesterol Amylase 127 H Lipase 540 H 03/28/19 04:50 WBC RBC Hgb Hct MCV MCH MCHC RDW Plt Count Neut % (Auto) Lymph % (Auto) [place] % (Auto) Eos % (Auto) Baso % (Auto) Neut # (Auto) Lymph # (Auto) [place] # (Auto) Eos # (Auto) Baso # (Auto) Sodium Potassium Chloride Carbon Dioxide BUN Creatinine Estimated GFR BUN/Creatinine Ratio Glucose Calcium Total Bilirubin AST ALT Alkaline Phosphatase Total Protein Albumin Globulin Albumin/Globulin Ratio Triglycerides 57 Cholesterol 120 L LDL Cholesterol, Calc 75 HDL Cholesterol 34 L Amylase Lipase Assessment & Plan Assessment & Plan narrative: 48-year-old female with presumed acute pancreatitis secondary to biliary disease. At this point will continue to treat as an acute pancreatitis. Clinically she is much better since she has had a cholecystectomy. Her pain is well controlled . Her transaminases are up which would be expected. Her amylase and lipase are slightly up today. We will continue with the clear liquids. We will watch clinically. We will continue with IV fluids. We will recheck labs in a.m. and if she is clinically doing well and labs are improved or no worse then we will advance diet. If she worsens clinically or labs worsen we will proceed with pancreatic MRI protocol to get a better look at the pancreas. Consider autoimmune workup but at this point I do not feel it is indicated.
--- NOTE | 2019-03-29 03:22 | PC.NURSE ---
Pt doing well, eager to go home and start a more substantial diet. No complaints of pain. No nausea. IVF running. Voiding well. Lap sites clean dry and intact covered with thick bandaid. Reports no BM since surgery but (+) flatus
[2019-03-29 03:41] VITALS: BP 113/71; PULSE 81; RESP 16; TEMP 36.7; O2SAT 99
[2019-03-29 06:19] LABS: Add Manual Diff / Slide Review NO; Basophils Absolute Auto 0 /uL (0-100); Basophils Percent Auto 0.3 % (0-2); Eosinophils Absolute Auto 100 /uL (0-450); Eosinophils Percent Auto 1.5 % (2-4); Hematocrit 29.6 % (36-46); Hemoglobin 9.4 g/dL (12.0-16.0); Lymphocytes Absolute Auto 1400 /uL (1100-4500); Mean Corpuscular HGB Conc 31.9 % (30-36); Mean Corpuscular Hemoglobin 23.3 PG (26-34); Mean Corpuscular Volume 73.1 fL (80-100); Monocytes Absolute Auto 600 /uL (0-900); Monocytes Percent Auto 11.6 % (3-14); Neutrophils Absolute Auto 3200 /uL (1500-7000); Neutrophils Percent Auto 60.6 % (50-75); Platelet Count 438 X10^3/uL (150-400); Red Blood Cell Count 4.05 X10^6/uL (4.0-5.2); Red Cell Distribution Width 17.2 % (11.6-14.8); White Blood Cell Count 5.2 X10^3/uL (4.5-11.0)
[2019-03-29 06:25] LABS: Alanine Aminotransferase 94 IU/L (9-52); Albumin 2.8 g/dL (3.5-5.0); Albumin Globulin Ratio 1.1 (1.0-2.8); Alkaline Phosphatase 69 U/L (38-126); Amylase 94 U/L (30-110); Aspartate Aminotransferase 59 IU/L (14-36); Bilirubin Total 0.2 mg/dL (0.2-1.3); Blood Urea Nitrogen 4 mg/dL (7-17); Calcium 7.6 mg/dL (8.4-10.2); Carbon Dioxide 24 mmol/L (22-32); Chloride 104 mmol/L (98-107); Estimated Glomerular Filt Rate > 60.0 mL/min (>60); Globulin 2.5 g/dL (1.7-4.1); Glucose 98 mg/dL (70-100); HEMOLYSIS < 15 (0-50); Potassium 3.4 mmol/L (3.4-5.1); Sodium 135 mmol/L (137-145); Total Protein 5.3 g/dL (6.3-8.2)
[2019-03-29 06:49] LABS: Lipase 538 U/L (23-300)
[2019-03-29 08:00] VITALS: BP 114/73; PULSE 87; RESP 16; TEMP 36.9; O2SAT 99
[2019-03-29] MEDS: ENOXAPARIN 40 MG/0.4 ML SYRINGE SUBCUT (11:05)
[2019-03-29 12:00] VITALS: BP 114/55; PULSE 90; RESP 17; TEMP 37.1; O2SAT 100
--- NOTE | 2019-03-29 12:56 | PM.PNPO.1 ---
Subjective Subjective Date Patient Seen: 03/29/19 Time Patient Seen: 12:20 Interval history: Patient feels much better than preop. Pain markedly improved. She is about to have some fruit for lunch. Exam Vital Signs (past 8 hours): - 03/29/19 08:00 Temperature 98.4 F Pulse Rate 87 Respiratory Rate 16 Blood Pressure 114/73 Pulse Oximetry 99 Oxygen Delivery Method Room Air Oxygen Flow Rate 0 Narrative Exam Narrative: Abdomen is soft. Dressings are intact. No obvious cellulitis. Objective Labs Result Diagrams: 03/29/19 05:28 03/29/19 05:28 Labs: Laboratory Results - last 24 hr 03/29/19 03/29/19 03/29/19 05:28 05:28 05:28 WBC 5.2 RBC 4.05 Hgb 9.4 L Hct 29.6 L MCV 73.1 L MCH 23.3 L MCHC 31.9 RDW 17.2 H Plt Count 438 H Neut % (Auto) 60.6 D Lymph % (Auto) 26.0 D [place] % (Auto) 11.6 Eos % (Auto) 1.5 L Baso % (Auto) 0.3 Neut # (Auto) 3200 Lymph # (Auto) 1400 [place] # (Auto) 600 Eos # (Auto) 100 Baso # (Auto) 0 Sodium 135 L Potassium 3.4 Chloride 104 Carbon Dioxide 24 BUN 4 L Creatinine 0.50 L Estimated GFR > 60.0 BUN/Creatinine Ratio 8.0 Glucose 98 D Calcium 7.6 L Total Bilirubin 0.2 AST 59 H ALT 94 H Alkaline Phosphatase 69 Total Protein 5.3 L Albumin 2.8 L Globulin 2.5 Albumin/Globulin Ratio 1.1 Amylase 94 Lipase 538 H Assessment & Plan Post-op Postoperative Procedures: Procedures Operation Date: 03/27/19 19:45 Actual Procedures Side Surgeon p Laparoscopic Cholecystectomy with Intraoperative Cholangiogram Not Applicable Romeo Herbert MD Postoperative status: doing well Postoperative plan narrative: Probable discharge in near future. Diet been advanced. If she remains asymptomatic can go home.
--- NOTE | 2019-03-29 13:11 | PC.NURSE ---
Pt up ambulating in the halls. Put on a general diet and tolerated well. Denies nausea. 4 small incisions covered and dressings are all cdi. BTx4. will be over to discharge patient around 1300. Daughter in room visiting.
--- NOTE | 2019-03-29 13:46 | P.DS_ITS ---
History of Present Illness History of Present Illness Chief complaint: thinks bowel obstruction Narrative: This is a new patient to me. She is scheduled to be a new patient with Justin HICKMAN. I reviewed her chart and diagnostic testing done so far. Patient states she is feeling much better than she did last night. She has been NPO since 9:00 p.m. last night. Patient presented to the ER via private car with complaints of intractable nausea and vomiting. She has been ill for the last 3 weeks and really unable to eat any food. She has lost 15 lb. She 1st had symptoms possibly in November were she had a few days of vomiting and she thought that she does ate something bad. She then had another episode in January of nausea and vomiting and thought this was related to prior on that she ate she was fine for a day and that she tried shrimp and had nausea and vomiting and thought it was an allergy to shellfish. She did not have a history of this. Then over the last 3 weeks she has had persistent nausea and vomiting and unable to eat solid foods. She was seen in urgent care recently underwent lab work and CT scan and there was thought to be a possible partial bowel obstruction. The patient then had no bowel movement for 10 days and took MiraLax and had 3 days of significant amount of stool output and then felt somewhat better and tried to eat a few bites of food last night but had severe onset abdominal pain, nausea and vomiting and presented to the emergency room. She has had no fevers she has had no blood in her stool she has not had any diarrhea and no mucus her stool. She otherwise has been healthy. Her past medical history: 1. 2003 superficial venous thrombosis twice in her lower legs. She stopped oral contraceptive pill at this time. 2. Varicose veins 3. Normal spontaneous vaginal deliveries x3 Medication: Occasionally takes [id number] sleep aid from [employer] but no prescription medications Allergies: Codeine causes vomiting Past surgical history: 1. Tonsillectomy and adenoidectomy 2. Lower extremity varicose vein procedure Health related behavior: She does not smoke and has never been a regular smoker. She drinks alcohol only socially. She does not use any street drugs. She does not take regular NSAIDs Family history: 1. Factor 5 Leiden deficiency in her daughter who is heterozygous for this as well as heterozygous for the MTHFR. No known clotting disorders 2. Maternal grandfather with cholecystectomy secondary to biliary disease 3. Father cholecystectomy secondary to cholelithiasis Review of systems: No fever but patient has been constipated and has lost 15 lb due to inability to eat No headaches No vision changes No rashes No chills or myalgias The remainder of 12 point review of systems is negative Discharge Providers Provider Date of admission: 03/27/19 00:37 Discharge Date: 03/29/19 Primary care physician: VICK Lomas Consults: 03/27/19 23:51 Consult to Discharge Planning Routine Comment: Discharge provider: Wen Cates MD Summary Hospital Course Discharge Diagnosis: Cholelithiasis Acute pancreatitis secondary to cholelithiasis, improved after cholecystectomy Hospital Course: Patient presented to emergency room with nausea vomiting and abdominal pain and was found to have cholelithiasis and acute pancreatitis. Patient was admitted made NPO and on hospital day 1. Late in the evening underwent laparoscopic-assisted cholecystectomy by Dr. Herbert. This was uncomplicated. Please see findings. Postop day 1. Patient was feeling much better than she had in days to weeks with some mild incisional pain. She was given clear liquids and tolerated these well and diet advanced and then postop day 2. Was given full diet and tolerated this well without any problems and was anxious to go home. Patient only took 1 or 2 pain pills. Patient was passing flatus and had bowel movement at the time of discharge. She had no nausea or vomiting or incisional pain. Had not had any narcotic pain medication for over 24 hours at time of discharge. Patient is discharged to home in stable condition Surgery discharge instructions per Dr. Herbert Discharge medications: Tylenol as needed Discharge diet as tolerated advanced slowly Discharge follow-up with Dr. Herbert and next week with Justin Carlson Routine postop instructions given Status at Discharge Cognitive/behavioral status at discharge: oriented Functional status at discharge: independent ambulation Overall status at discharge: patient is progressing back to baseline Time Spent with Patient Time spent: Greater than 30 minutes Exam Vital Signs (past 8 hours): - 03/29/19 08:00 03/29/19 12:00 Temperature 98.4 F 98.7 F Pulse Rate 87 90 Respiratory Rate 16 17 Blood Pressure 114/73 114/55 L Pulse Oximetry 99 100 Oxygen Delivery Method Room Air Oxygen Flow Rate 0 Objective Labs Result Diagrams: 03/29/19 05:28 08/28/19 05:28 Labs: Laboratory Results - last 24 hr 03/29/19 03/29/19 03/29/19 05:28 05:28 05:28 WBC 5.2 RBC 4.05 Hgb 9.4 L Hct 29.6 L MCV 73.1 L MCH 23.3 L MCHC 31.9 RDW 17.2 H Plt Count 438 H Neut % (Auto) 60.6 D Lymph % (Auto) 26.0 D Steele % (Auto) 11.6 Eos % (Auto) 1.5 L Baso % (Auto) 0.3 Neut # (Auto) 3200 Lymph # (Auto) 1400 Steele # (Auto) 600 Eos # (Auto) 100 Baso # (Auto) 0 Sodium 135 L Potassium 3.4 Chloride 104 Carbon Dioxide 24 BUN 4 L Creatinine 0.50 L Estimated GFR > 60.0 BUN/Creatinine Ratio 8.0 Glucose 98 D Calcium 7.6 L Total Bilirubin 0.2 AST 59 H ALT 94 H Alkaline Phosphatase 69 Total Protein 5.3 L Albumin 2.8 L Globulin 2.5 Albumin/Globulin Ratio 1.1 Amylase 94 Lipase 538 H Discharge Plan Discharge Plan Patient Disposition: Home Discharge Med Rec/Prescriptions Prescriptions: New hydrocodone-acetaminophen [[place]] 5-325 mg tablet 1 tab PO Q4-6H PRN (Reason: painful procedure) Qty: 7 RF: 0 No Action No Known Home Medications RF: 0 Follow up/Referrals: Romeo Herbert MD [Physician] - 04/12/19 2:45 pm (If you need to reach her surgeon after hours please call the office and listen to the entire message. At the end you will be connected with a page microphone boom operator.) Hayley Carlson ARNP [Primary Care Provider] - Provider Discharge Instructions Diet: Diet as Tolerated Activity: Do not drive unless you are pain free off medication. Do not lift over 10 lb or straining for the next 3 and half weeks. This is to prevent you from getting a hernia at her umbilicus. No pool or tub for at least 2 weeks. You may shower after removing the Band-Aids. Skin/Wound/Dressing Care Report to your healthcare provider any signs of infection, such as:: increased pain, unusual drainage and unusual redness Dressing: You may remove the Band-Aids on . You may then shower. Leave the pieces of tape under the Band-Aids fall off on their own. Visit Report/Discharge Packet Instructions: DI for Cholecystectomy Discharge Data Primary Care Provider: Hayley Carlson
== END 2019-03-29 14:15 | disposition home or self-care (01) | DRG 418 ==
LOC: ED 21:34 → ICU 03-27 08:02 → AC 03-28 15:28 → ICU 03-28 16:01
PROVIDERS: Specialist; Admitting Provider Family Medicine; Emergency Provider Emergency Medicine; PCP Internal Medicine; Visit Provider Family Medicine
PROC: 0FT44ZZ Resection of Gallbladder, Percutaneous Endoscopic Approach (ICD-10-PCS; CPT 47562; principal; 2019-03-27 19:45)
DX: K85.10 Biliary acute pancreatitis without necrosis or infection (principal); K80.10 Calculus of gallbladder with chronic cholecystitis without obstruction; E87.6 Hypokalemia; K80.20 Calculus of gallbladder without cholecystitis without obstruction
CPT/HCPCS: 36415; 36591; 47563; 74022; 74300; 76000; 76705; 80053; 80061; 82150; 82962; 83605; 83690; 85025; 87797; 96360; 96374; 96375; 99222; 99283; 99284; C9113; J1100; J1170; J1650; J1885; J2250; J2405; J2704; J3010

== ENCOUNTER → 2019-04-26 09:58 | Outpatient (CLI) | payer OTHER, SELFPAY ==
[2019-04-24 16:49] VITALS: BMI 23.6
--- NOTE | 2019-04-26 10:38 | DI.CT.S_ITS ---
PROCEDURE: CT ABDOMEN PELVIS W CON INDICATIONS: persistent mid abd discomfort post pancreatitis/lap choly TECHNIQUE: After the administration of oral and intravenous contrast, 5 mm thick sections acquired from the diaphragms to the symphysis. 5 mm thick coronal and sagittal reformats were performed. For radiation dose reduction, the following was used: automated exposure control, adjustment of mA and/or kV according to patient size. COMPARISON: [facility], CT, CT ABDOMEN PELVIS W CON, 03/22/2019, 14:37. FINDINGS: Image quality: Excellent. ABDOMEN: Lung bases: Lung bases are clear. Heart size is normal. Solid organs: Liver is normal in size and enhancement. Gallbladder is surgically absent. Shunt. Biliary system is non-dilated. Pancreas enhances normally. Spleen is normal in size and enhancement. No adrenal nodules. Kidneys are normal in size and enhancement, without hydronephrosis. Peritoneum and bowel: Again noted is a mass present in the deep pelvis in the right lower quadrant. It appears to probably involve the wall of the sigmoid colon resulting in a colonic obstruction. It may potentially also involve ileum. There are also multiple prominent lymph nodes in the right pelvis superior to the mass, possibly representing locoregional spread of tumor. No free fluid or air. Nodes and vessels: No retroperitoneal or mesenteric adenopathy. Aorta and inferior vena cava are normal in caliber. Miscellaneous: No ventral hernias. PELVIS: Genitourinary: Bladder wall thickness is normal. Miscellaneous: No inguinal hernias or adenopathy. Bones: No suspicious bony lesions. No vertebral body compression fractures. IMPRESSION: There is a mass present in the right pelvis which appears to involve the wall of the sigmoid colon resulting in colonic obstruction. It may also involve distal ileum. Numerous small lymph nodes are suspicious for locoregional spread of tumor. Dictated by: Edgar Walters M.D. on 04/26/2019 at 11:12 Approved by: Edgar Walters M.D. on 04/26/2019 at 11:25
== END ==
PROVIDERS: PCP Internal Medicine; Visit Provider Specialist
DX: R10.9 Unspecified abdominal pain (principal); R19.09 Other intra-abdominal and pelvic swelling, mass and lump; K56.609 Unspecified intestinal obstruction, unspecified as to partial versus complete obstruction
CPT/HCPCS: 74177; Q9967

== ENCOUNTER 2019-05-03 11:00 | Inpatient (IN) | payer OTHER, SELFPAY ==
[2019-04-24 16:49] VITALS: BMI 23.6
[2019-05-03] VITALS (15 sets, daily range): BP systolic 98–118; BP diastolic 54–74; PULSE 57–93; RESP 10–20; TEMP 36.4–37.1; O2SAT 91–100; BMI 20.5
--- NOTE | 2019-05-03 | PATH_ITS ---
[facility] Accession Number: [id number] . 01 Material submitted: . small bowel - SMALL BOWEL . 01 Clinical history: . PROXIMAL SMALL BOWEL IS DILATED . 02 Diagnosis: Small Bowel, Resection: 1. 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 2. Chronic, severely active ileitis with ulceration. 3. Reactive lymphoid hyperplasia. 4. No evidence of dysplasia or malignancy. MRV 05/08/2019 1640 Local . 02 Comment: As part of routine machined parts quality inspector, this case was also reviewed by Dr. Roland Madera, who agrees with the diagnosis. Dr. Jara gave results to [place] at 10:40 a.m. on 05/08/2019. . 02 Electronically signed: . Aranza Jara MD, Pathologist NPI- [id number] . 01 Gross description: . Received in formalin, labeled small bowel, proximal small bowel is dilated, is a partially opened segment of small bowel (length-15.3 cm, proximal diameter-4.4 cm, distal diameter-2.2 cm) with attached mesentery (up to 6.3 cm thick). The resection margins are received stapled. The distal portion has aviles cobblestone-appearing mucosa with a scant amount of normal folds. This area (11.5 x 6.5 cm) is circumferential and is located 1.8 cm from the radial, 9.2 cm from the proximal, and 3.7 cm from the distal resection margins. The distal end is nearly completely occluded. The wall is thickened distorting normal anatomical architecture. The serosa is aviles smooth and shiny. Multiple possible lymph nodes (0.2 x 0.2 x 0.1 cm-2.4 x 2.0 x 0.8 cm) are identified. The resection margins are inked black and the serosa is blue. Section code: (A1) proximal resection margin, customer retention representative longitudinal sections; (A2-A4) distal resection margin, customer retention representative longitudinal sections; (A5) radial resection margin, customer retention representative serial sections; (A6-A9) small bowel segment, customer retention representative serial sections submitted proximal to distal; (A10-A11) distal end, customer retention representative longitudinal section; (A12) multiple intact lymph nodes; (A13, A14) one bisected lymph node in each; (A15-A17) one trisected lymph node. Note: This specimen has been reviewed by Dr. Val Dean. ([id number]) /MRV 05/05/2019 1034 Local . 02 Pathologist provided ICD-10: N80.5 . 02 CPT . 842559 Performed at: 01 [facility] [address] [facility] [address] [id number] MD Brett Dean MD Phone: [phone] Performed at: 02 [facility] [address] [place], [place] [id number] MD Aranza Jara MD Phone: [phone]
--- NOTE | 2019-05-03 08:35 | PM.PREOP ---
Pre-operative Note Interval Note History & Physical reviewed/Exam performed by Physician: Yes Changes to H&P: No
[2019-05-03] MEDS: PIPERACILLIN-TAZO 3.375 GM/50 ML FROZ.PIGGY IV (13:21)
[2019-05-03] MEDS: ACETAMINOPHEN IV 1,000 MG/100 ML VIAL 400 MG IV (13:30)
--- NOTE | 2019-05-03 13:49 | SUR.OPER ---
Supine on padded OR bed, head on pillow, ARMS SECURED AT SIDES. legs uncrossed, safety belt at thigh, tape over blanket over lower legs.
[2019-05-03] MEDS: LACTATED RINGERS 1,000 ML 100 ML IV (14:02)
[2019-05-03] MEDS: BUPIVACAINE 0.5% (PF) VIAL 30 ML INJ (14:03)
--- NOTE | 2019-05-03 16:16 | PM.OP.1 ---
Operative Date/Time/Diagnoses Date of procedure: 05/03/19 Time of procedure: 16:16 Pre-op diagnosis: Mass involving the small bowel. Origin unclear. Post-op diagnosis: same Procedure & Clinicians Procedure: Laparoscopy with small bowel resection and primary anastomosis Same procedure as scheduled: Yes Indications: Near complete bowel obstruction caused by a mass of uncertain etiology. Surgeon: Romeo Herbert Supervisor [employer] Reservations: Aline Mason Anesthesia Type: General Operative Notes Findings: What appeared to be an inflammatory mass with enlarged lymph nodes of the mesentery. Cause unclear. Closure Type: primary Specimen(s): other (Segment of small bowel containing the abnormality) Estimated Blood Loss (mL): 15 Blood products transfused: none Procedure in detail: The patient was placed supine on the operating room table and underwent general endotracheal anesthesia. Barker was placed and she was prepped and draped in the usual fashion. Incision was made through the prior incision from her lap choly at the umbilicus and carried down into the peritoneal cavity. An Yunior cannula was inserted an additional port was placed in left lower quadrant in the suprapubic area and the abnormality was identified as being in small bowel. It was in the ileum. I mobilized the terminal ileum and cecum by dividing the attachments to the abdominal wall. This allowed for great mobility of the area involved. We removed the ports made a small incision from the umbilicus inferiorly and delivered the abnormality into the wound after placing an Purnima wound protector. I really could not tell the nature of this abnormality. The proximal small bowel was quite dilated and thickened and the distal was normal. We chose a point proximal and divided the bowel using a IZZY stapling device. In a similar manner we handled the small bowel beyond the lesion. I then divided the mesentery including the enlarged lymphadenopathy. 2-0 silk ties were used to tie off the vessels in the mesentery. Specimen was removed in opened and I still could not tell the nature of it. It was submitted as a specimen. An end-to-end anastomosis was then created by cheetling the distal small bowel so that matched the length of the transection of the proximal small bowel. The staple lines were removed. A 2 layered anastomosis was undertaken with an outer layer of seromuscular silk and an inner running layer of 3 0 Vicryl. The anastomosis was palpated and was widely patent. I was able to push material across it without difficulty and there was no evidence of leak. The small bowel was returned to the abdomen. The abdomen was irrigated and sucked free of fluid. The fascia was closed with a running 0 0 PDS and occasional 0 0 Vicryl interrupted suture. Subcu was irrigated. The skin was closed with running 4 0 Vicryl subcuticular stitches in both the midline and the 2 remaining port sites. The patient had Mastisol and Steri-Strips applied. She was awakened extubated taken recovery room good condition. Complications: none Post-operative Condition: stable Disposition: PACU
--- NOTE | 2019-05-03 16:42 | SUR.PHASEI ---
REPORT CALLED TO MILTON JALLOH ON ACUTE CARE FLOOR. PT IN STABLE CONDITION, VSS. DRSG'S OBSERVED TO BE C/D/I. PT RESTING IN BED WITH EYES CLOSED, EASILY AROUSABLE TO VOICE WHEN SPOKEN TO. PT DENIES ANY NAUSEA AND APPEARS COMFORTABLE AT THIS TIME. PT WILL BE TRANSFERRED TO ACUTE CARE FLOOR.
--- NOTE | 2019-05-03 17:04 | SUR.PHASEI ---
PT TRANSFERRED TO ACUTE CARE FLOOR IN STABLE CONDITION. PT STABLE AND TALKING TO DAUGHTER AND RN UPON ARRIVAL TO ROOM. BEDSIDE REPORT GIVEN TO MILTON JALLOH AT THAT TIME. TRANSFERRED CARE OF PT TO MILTON JALLOH AT THAT TIME.
[2019-05-03] MEDS: DEXTROSE 5%-0.45% NS 1,000 ML 125 ML IV (17:32)
[2019-05-03] MEDS: KETOROLAC 30 MG/ML VIAL IV (20:36)
[2019-05-03] MEDS: GABAPENTIN 300 MG CAPSULE PO (20:36)
[2019-05-04] MEDS: DEXTROSE 5%-0.45% NS 1,000 ML 125 ML IV ×2 (01:48→10:02)
[2019-05-04 05:58] LABS: Add Manual Diff / Slide Review NO; Basophils Absolute Auto 0 /uL (0-100); Basophils Percent Auto 0.2 % (0-2); Eosinophils Absolute Auto 0 /uL (0-450); Hematocrit 29.2 % (36-46); Hemoglobin 9.3 g/dL (12.0-16.0); Lymphocytes Absolute Auto 800 /uL (1100-4500); Lymphocytes Percent Auto 5.7 % (25-40); Mean Corpuscular HGB Conc 31.8 % (30-36); Mean Corpuscular Hemoglobin 23.9 PG (26-34); Mean Corpuscular Volume 75.3 fL (80-100); Monocytes Absolute Auto 300 /uL (0-900); Monocytes Percent Auto 2.1 % (3-14); Neutrophils Absolute Auto 12800 /uL (1500-7000); Platelet Count 476 X10^3/uL (150-400); Red Blood Cell Count 3.88 X10^6/uL (4.0-5.2); Red Cell Distribution Width 19.1 % (11.6-14.8); White Blood Cell Count 13.9 X10^3/uL (4.5-11.0)
[2019-05-04 06:03] VITALS: BP 100/71; PULSE 71; RESP 15; TEMP 36.8; O2SAT 97
[2019-05-04 07:50] VITALS: BP 100/72; PULSE 65; RESP 16; TEMP 36.6; O2SAT 98
[2019-05-04] MEDS: ENOXAPARIN 40 MG/0.4 ML SYRINGE SUBCUT (10:00)
[2019-05-04] MEDS: GABAPENTIN 300 MG CAPSULE PO ×2 (10:00→21:13)
[2019-05-04 11:14] VITALS: BP 115/74; PULSE 83
[2019-05-04 13:40] VITALS: BP 105/78; PULSE 64; RESP 16; TEMP 36.8; O2SAT 99
--- NOTE | 2019-05-04 15:49 | CM.DANOTE ---
DCP: Case received, EMR reviewed and met with patient. Introduced self and role. Was able to meet with patient in her room to obtain baseline activity and health information. DCP assessment/template, completed with information currently available. Patient is a 48 year old female who admitted yesterday morning to the care of the surgical team. PCP: VICK Lomas. Payer: confirmed: [facility]. Patient came to the hospital for a surgical procedure. Patient had surgery for a small bowel obstruction. Patient mentioned that they removed part of her intestine. Patient had been here approximately a month ago for gall bladder removal. Met with patient in her room. Pleasant. She stated, I'm so glad that I had the surgery so I can feel normal again, and enjoy food. Patient resides here in [place], and lives with her spouse, Brett. Her is gone at times, for he is a commercial real estate appraiser. Patient is a homemaker, independent. Has a young child at home, and a 26 year old daughter who just graduated nursing school, who is also helping out. Patient is looking forward to being back on a regular diet. P: DCP to continue to follow. Patient should be able to go home when she is medically stable and tolerate food intake. Vera Muñoz RN/Tester/Lift Trucker
[2019-05-04 16:00] VITALS: BP 108/74; PULSE 81; RESP 16; TEMP 36.8; O2SAT 99
[2019-05-04] MEDS: KETOROLAC 30 MG/ML VIAL IV (17:01)
--- NOTE | 2019-05-04 17:57 | PM.PNPO.1 ---
Subjective Subjective Date Patient Seen: 05/04/19 Time Patient Seen: 17:58 Interval history: Patient seen earlier today and this evening. She is feeling well. Having very little pain. Has required no pain medication. She is breathing well and walking extensively. She is hungry. Exam Vital Signs (past 8 hours): - 05/04/19 11:14 05/04/19 13:40 05/04/19 16:00 Temperature 98.3 F 98.3 F Pulse Rate 83 64 81 Respiratory Rate 16 16 Blood Pressure 115/74 105/78 108/74 Pulse Oximetry 99 99 Oxygen Delivery Method Room Air Narrative Exam Narrative: Lungs are clear with an excellent breathing effort. Heart regular rate and rhythm. Abdomen is flat soft. Dressings are intact. No obvious cellulitis. Objective Labs Result Diagrams: 05/04/19 05:35 Labs: Laboratory Results - last 24 hr 05/04/19 05:35 WBC 13.9 H RBC 3.88 L Hgb 9.3 L Hct 29.2 L MCV 75.3 L MCH 23.9 L MCHC 31.8 RDW 19.1 H Plt Count 476 H Neut % (Auto) 92.0 H Lymph % (Auto) 5.7 L Glynn % (Auto) 2.1 L Eos % (Auto) 0.0 L Baso % (Auto) 0.2 Neut # (Auto) 71552 H Lymph # (Auto) 800 L Glynn # (Auto) 300 Eos # (Auto) 0 Baso # (Auto) 0 Assessment & Plan Post-op Assessment and plan (1) Abdominal mass: Postoperative Procedures: Procedures Operation Date: 05/03/19 12:15 Actual Procedures Side Surgeon p Laparoscopic Assisted Small bowel Resection with primary anastomosis Right Romeo Herbert MD Postoperative status: doing well Postoperative status narrative: Patient is doing very well. Will advance her diet. Postoperative plan narrative: Pathology still pending. Hemoglobin hematocrit are low in her MCV is low. Will supplement her with vitamin and iron. Not sure if this is dietary related or some other process. It may be related to the small bowel mass that was found. Quality VTE Deep Vein Thrombosis/Pulmonary Embolism Present on Admission: No
[2019-05-04 20:00] VITALS: BP 113/58; PULSE 75; RESP 16; TEMP 36.9; O2SAT 98
[2019-05-05 00:15] VITALS: BP 104/60; PULSE 77; RESP 18; TEMP 37.1; O2SAT 96
[2019-05-05] MEDS: DEXTROSE 5%-0.45% NS 1,000 ML 125 ML IV ×2 (00:25→08:45)
[2019-05-05 05:15] VITALS: BP 116/74; PULSE 72; RESP 18; TEMP 36.5; O2SAT 99
--- NOTE | 2019-05-05 06:22 | PC.NURSE ---
Pt reports I feel great this morning, I'm ready to get out of here. Pt states I feel bubbles when GI assessed. Reports passed gas and tiny stool this morning. Denies all pain.
[2019-05-05 07:40] VITALS: BP 116/76; PULSE 77; RESP 16; TEMP 37.1; O2SAT 97
[2019-05-05 07:51] LABS: Add Manual Diff / Slide Review NO; Basophils Absolute Auto 0 /uL (0-100); Basophils Percent Auto 0.5 % (0-2); Eosinophils Absolute Auto 0 /uL (0-450); Eosinophils Percent Auto 0.4 % (2-4); Hematocrit 26.3 % (36-46); Hemoglobin 8.6 g/dL (12.0-16.0); Lymphocytes Absolute Auto 2300 /uL (1100-4500); Lymphocytes Percent Auto 23.6 % (25-40); Mean Corpuscular HGB Conc 32.5 % (30-36); Mean Corpuscular Hemoglobin 24.4 PG (26-34); Mean Corpuscular Volume 75.3 fL (80-100); Monocytes Absolute Auto 600 /uL (0-900); Monocytes Percent Auto 6.2 % (3-14); Neutrophils Absolute Auto 6700 /uL (1500-7000); Neutrophils Percent Auto 69.3 % (50-75); Platelet Count 452 X10^3/uL (150-400); Red Cell Distribution Width 19.4 % (11.6-14.8); White Blood Cell Count 9.6 X10^3/uL (4.5-11.0)
[2019-05-05 08:02] LABS: Calcium 7.4 mg/dL (8.4-10.2); Carbon Dioxide 28 mmol/L (22-32); Chloride 103 mmol/L (98-107); Estimated Glomerular Filt Rate > 60.0 mL/min (>60); Glucose 104 mg/dL (70-100); HEMOLYSIS < 15 (0-50); Sodium 138 mmol/L (137-145)
[2019-05-05 08:12] LABS: Blood Urea Nitrogen 2 mg/dL (7-17)
[2019-05-05 08:16] LABS: Potassium 2.7 mmol/L (3.4-5.1)
[2019-05-05] MEDS: POTASSIUM CHLORIDE 20 MEQ TAB 40 MEQ PO ×2 (09:52→17:03)
[2019-05-05] MEDS: ENOXAPARIN 40 MG/0.4 ML SYRINGE SUBCUT (09:52)
[2019-05-05] MEDS: GABAPENTIN 300 MG CAPSULE PO ×2 (09:52→20:34)
[2019-05-05 14:00] VITALS: BP 107/68; PULSE 78; RESP 16; TEMP 36.8; O2SAT 97
--- NOTE | 2019-05-05 15:42 | P.PN_ITS ---
Subjective Subjective Date Patient Seen: 05/05/19 Time Patient Seen: 10:30 Interval history: No acute events overnight. Pt passing gas. Denies nausea. Minimal pain. Exam Vital Signs (past 8 hours): - 05/05/19 14:00 Temperature 98.3 F Pulse Rate 78 Respiratory Rate 16 Blood Pressure 107/68 Pulse Oximetry 97 Oxygen Delivery Method Room Air Oxygen Flow Rate 0 Narrative Exam Narrative: Alert, oriented, comfortable. Normal respirations on room air. CV: NSR. Abdomen soft, slightly distended. Dressings are clean and intact. Objective Labs Result Diagrams: 05/05/19 07:31 05/05/19 07:31 Labs: Laboratory Results - last 24 hr 05/05/19 05/05/19 07:31 07:31 WBC 9.6 RBC 3.50 L Hgb 8.6 L Hct 26.3 L MCV 75.3 L MCH 24.4 L MCHC 32.5 RDW 19.4 H Plt Count 452 H Neut % (Auto) 69.3 D Lymph % (Auto) 23.6 L Cavalier % (Auto) 6.2 Eos % (Auto) 0.4 L Baso % (Auto) 0.5 Neut # (Auto) 6700 Lymph # (Auto) 2300 Cavalier # (Auto) 600 Eos # (Auto) 0 Baso # (Auto) 0 Sodium 138 Potassium 2.7 L* Chloride 103 Carbon Dioxide 28 BUN 2 L Creatinine 0.50 L Estimated GFR > 60.0 BUN/Creatinine Ratio 4.0 L Glucose 104 H Calcium 7.4 L Magnesium 2.0 Assessment & Plan Assessment and plan (1) Abdominal mass: Problem details: S/p laparotomy and removal Current visit: Yes Status: Acute (2) Partial bowel obstruction: Problem details: s/p laparotomy and removal of obstructing mass Current visit: No Status: Acute (3) Hypokalemia: Problem details: Acute postoperative hypokalemia, likely due to NPO, and fluid hydration. Potassium was repleted this morning with 40 mEq, and will be rechecked at 4:00 p.m.. Current visit: Yes Status: Acute (4) Anemia due to blood loss, acute: Problem details: Hemoglobin was 8.6 this morning. Vitals are stable and patient denies lightheadedness. This is likely due to blood loss from surgery and dilution from fluids being given. Fluids were reduced, and hemoglobin will be rechecked tomorrow morning. Current visit: Yes Status: Acute (5) S/P small bowel resection: Problem details: Patient had small-bowel resection for obstructing mass. Pathology is still pending. Patient is passing gas and stool. Dispo planning is underway, and will likely result in discharge tomorrow if electrolytes and blood counts are stable. Current visit: Yes Status: Acute Quality VTE Deep Vein Thrombosis/Pulmonary Embolism Present on Admission: No
[2019-05-05 15:58] VITALS: BP 132/80; PULSE 91; RESP 16; TEMP 36.9; O2SAT 99
[2019-05-05 16:27] LABS: HEMOLYSIS < 15 (0-50); Potassium 2.9 mmol/L (3.4-5.1)
[2019-05-05 19:47] VITALS: BP 119/77; PULSE 92; RESP 16; TEMP 37.3; O2SAT 97
[2019-05-06 00:10] VITALS: BP 138/91; PULSE 77; RESP 14; TEMP 36.9; O2SAT 100
[2019-05-06] MEDS: SODIUM CHLORIDE 0.9% FLUSH 10 ML IV (02:13)
[2019-05-06 04:18] VITALS: BP 109/78; PULSE 75; RESP 16; TEMP 36.7; O2SAT 98
--- NOTE | 2019-05-06 05:11 | PC.NURSE ---
We did not see the bowl movement but the patient said that it was a large loose BM.
[2019-05-06 05:38] LABS: Add Manual Diff / Slide Review NO; Basophils Absolute Auto 0 /uL (0-100); Basophils Percent Auto 0.6 % (0-2); Eosinophils Absolute Auto 300 /uL (0-450); Eosinophils Percent Auto 4.9 % (2-4); Hematocrit 29.8 % (36-46); Hemoglobin 9.7 g/dL (12.0-16.0); Lymphocytes Absolute Auto 2200 /uL (1100-4500); Lymphocytes Percent Auto 30.4 % (25-40); Mean Corpuscular HGB Conc 32.4 % (30-36); Mean Corpuscular Hemoglobin 24.6 PG (26-34); Mean Corpuscular Volume 75.9 fL (80-100); Monocytes Absolute Auto 500 /uL (0-900); Monocytes Percent Auto 7.3 % (3-14); Neutrophils Absolute Auto 4100 /uL (1500-7000); Neutrophils Percent Auto 56.8 % (50-75); Platelet Count 478 X10^3/uL (150-400); Red Blood Cell Count 3.93 X10^6/uL (4.0-5.2); Red Cell Distribution Width 19.4 % (11.6-14.8); White Blood Cell Count 7.1 X10^3/uL (4.5-11.0)
[2019-05-06 05:44] LABS: Blood Urea Nitrogen 3 mg/dL (7-17); Calcium 8.3 mg/dL (8.4-10.2); Carbon Dioxide 30 mmol/L (22-32); Chloride 100 mmol/L (98-107); Estimated Glomerular Filt Rate > 60.0 mL/min (>60); Glucose 90 mg/dL (70-100); HEMOLYSIS < 15 (0-50); Magnesium 1.9 mg/dL (1.6-2.3); Potassium 4.2 mmol/L (3.4-5.1); Sodium 136 mmol/L (137-145)
[2019-05-06 07:20] VITALS: BP 113/76; PULSE 76; RESP 16; TEMP 36.6; O2SAT 99
--- NOTE | 2019-05-06 09:31 | PC.NURSE ---
Pt dressed and ready for discharge home with Daughter. HL removed. Dressing to abdomen changed. Discussed d/c instructions, low residue diet and information given thus. Discussed stroke education and follow up. Pt denies further questions and was taken out via w/c by TITLE ABSTRACTOR with daughter and all becoming.
--- NOTE | 2019-05-06 10:37 | P.DS_ITS ---
History of Present Illness History of Present Illness Date Patient Seen: 05/06/19 Time Patient Seen: 10:37 Chief complaint: Excision Narrative: Patient admitted after bowel resection for recovery and post operative pain control. She had early return of bowel function, and her diet was advanced to fulls as appropriate. She was passing gas and stool, and pain was well controlled by postop day 2. She had some hypokalemia which was corrected with p.o. potassium, and starting her diet, and a down turn in her hemoglobin which resolved with reduction of IV fluids. The anemia was likely secondary to blood loss in the operating room, as well as dilution. Discharge Providers Provider Date of admission: 05/03/19 11:00 Discharge Date: 05/06/19 Primary care physician: VICK Lomas Consults: 05/03/19 17:12 Consult to Discharge Planning Routine Comment: Discharge provider: Aline Mason MD Summary Hospital Course Discharge Diagnosis: Small-bowel obstruction, pathology pending Hospital Course: Patient had bowel resection with primary anastomosis. She had a good course of recovery with early return of bowel function and toleration of diet. She required minimal pain medication. After her labs normalized she was felt to be appropriate for discharge. Status at Discharge Cognitive/behavioral status at discharge: oriented and at baseline, oriented Functional status at discharge: independent ambulation Overall status at discharge: patient is back to baseline Time Spent with Patient Time spent: Greater than 30 minutes Exam Vital Signs (past 8 hours): - 05/06/19 04:18 05/06/19 07:20 Temperature 98.0 F 98 F Pulse Rate 75 76 Respiratory Rate 16 16 Blood Pressure 109/78 113/76 Pulse Oximetry 98 99 Oxygen Delivery Method Room Air Oxygen Flow Rate 0 Narrative Exam Narrative: Alert, oriented, comfortable. Normal respirations on room air. CV: NSR. Abdomen soft, nondistended. Dressings removed, and incision was clean, dry, intact, without erythema or drainage. Objective Labs Result Diagrams: 05/06/19 05:23 05/06/19 05:23 Labs: Laboratory Results - last 24 hr 05/05/19 05/06/19 05/06/19 16:15 05:23 05:23 WBC 7.1 RBC 3.93 L Hgb 9.7 L Hct 29.8 L MCV 75.9 L MCH 24.6 L MCHC 32.4 RDW 19.4 H Plt Count 478 H Neut % (Auto) 56.8 Lymph % (Auto) 30.4 [place] % (Auto) 7.3 Eos % (Auto) 4.9 H Baso % (Auto) 0.6 Neut # (Auto) 4100 Lymph # (Auto) 2200 [place] # (Auto) 500 Eos # (Auto) 300 Baso # (Auto) 0 Sodium 136 L Potassium 2.9 L 4.2 D Chloride 100 Carbon Dioxide 30 BUN 3 L Creatinine 0.50 L Estimated GFR > 60.0 BUN/Creatinine Ratio 6.0 Glucose 90 Calcium 8.3 L Magnesium 1.9 Discharge Plan Discharge Plan Patient Disposition: Home Discharge Med Rec/Prescriptions Prescriptions: New acetaminophen 325 mg Tablet 650 mg PO Q6HR PRN (Reason: Pain, Mild (1-3)) Qty: 14 RF: 0 Discontinued neomycin 500 mg tablet 1 gram PO TID Qty: 6 RF: 0 erythromycin 500 mg tablet 1,000 mg PO TID Qty: 6 RF: 0 Follow up/Referrals: Romeo Herbert MD [Physician] - Hayley Carlson ARNP [Primary Care Provider] - Provider Discharge Instructions Diet: Diet as Tolerated and Full Liquid Diet comment: Advance to low residual diet as tolerated Activity: Activity as tolerated, avoid lifting more than 10 lb, avoid straining the abdominal wall (sit-ups, core exercise, yard work) Other treatments: Low residual diet: Avoid things that are difficult to digest such as hard meats, on cooked vegetables, fruit peels Skin/Wound/Dressing Care Report to your healthcare provider any signs of infection, such as:: chills, fever, night sweats, increased pain, unusual drainage and unusual redness Dressing: Okay to remove outer bandage and shower. Pat dry the incision and cover. Other wound treatment: Do not submerge the incision in a pool or tub for 2 weeks, or until cleared by your surgeon. Visit Report/Discharge Packet Instructions: Low-Fiber/Low-Residue Diet, DI for Laparoscopy, [facility]: Wound Care Discharge Data Primary Care Provider: Hayley Carlson Discharges patient from system. Discharge Date/Time: 05/06/19 09:30 Quality VTE Deep Vein Thrombosis/Pulmonary Embolism Present on Admission: No
== END 2019-05-06 09:30 | disposition home or self-care (01) | DRG 330 ==
PROVIDERS: Surgery; Admitting Provider Specialist; PCP Internal Medicine; Visit Provider Specialist
PROC: 0DTE0ZZ Resection of Large Intestine, Open Approach (ICD-10-PCS; principal; 2019-05-03 12:15)
DX: N80.5 Endometriosis of intestine (principal); D62 Acute posthemorrhagic anemia; E87.6 Hypokalemia; R59.0 Localized enlarged lymph nodes
CPT/HCPCS: 36415; 44160; 80048; 83735; 84132; 85025; J0131; J1100; J1170; J1650; J1885; J2250; J2405; J2543; J2704; J3010

== ENCOUNTER → 2020-11-01 16:06 | Outpatient (CLI) | payer OTHER, SELFPAY ==
[2019-05-03 17:12] VITALS: BMI 20.5
[2020-11-01] MEDS: COVID-19 VACC #1, MRNA(MOD) 100 MCG/0.5 ML VIAL IM (16:14)
== END ==
PROVIDERS: PCP Internal Medicine; Visit Provider Internal Medicine
DX: Z23 Encounter for immunization (principal)
CPT/HCPCS: 0011A; 91301

== ENCOUNTER → 2020-11-29 15:05 | Outpatient (CLI) | payer OTHER, SELFPAY ==
[2019-05-03 17:12] VITALS: BMI 20.5
[2020-11-29] MEDS: COVID-19 VACC #2, MRNA(MOD) 100 MCG/0.5 ML VIAL IM (15:23)
== END ==
PROVIDERS: PCP Internal Medicine; Visit Provider Internal Medicine
DX: Z23 Encounter for immunization (principal)
CPT/HCPCS: 0012A; 91301

== ENCOUNTER → 2024-07-10 09:52 | Outpatient (CLI) | payer OTHER, SELFPAY ==
[2019-05-03 17:12] VITALS: BMI 20.5
--- NOTE | 2024-07-10 09:54 | DI.RAD.S_ITS ---
PROCEDURE: XR WRIST LT 2V INDICATIONS: WRIST PAIN TECHNIQUE: 2 views of the wrist were acquired. COMPARISON: None. FINDINGS: Bones: No acute displaced fracture or dislocation. Soft tissues: No suspicious calcifications. IMPRESSION: No acute radiographic abnormality. If there is high concern for further derangement, consider MRI evaluation. Dictated by: Chris Urrutia M.D. on 07/10/2024 at 15:16 Approved by: Chris Urrutia M.D. on 07/10/2024 at 15:17
== END ==
LOC: RAD 09:53
PROVIDERS: PCP Internal Medicine; Referring Provider Internal Medicine; Visit Provider Internal Medicine
DX: S69.92XA Unspecified injury of left wrist, hand and finger(s), initial encounter (principal); X58.XXXA Exposure to other specified factors, initial encounter
CPT/HCPCS: 73100

== ENCOUNTER 2024-08-07 11:25 | Emergency (ER) | payer OTHER, SELFPAY ==
[2019-05-03 17:12] VITALS: BMI 20.5
[2024-08-07 11:30] VITALS: BP 160/77; PULSE 78; RESP 16; TEMP 36.2; O2SAT 100; BMI 24.3
--- NOTE | 2024-08-07 12:20 | DI.US.S_ITS ---
PROCEDURE: US PERIPH VENOUS LOW EXTREM LT INDICATIONS: lower leg lump, pain TECHNIQUE: Real-time imaging, as well as color and pulse Doppler interrogation, were performed of the lower extremity deep veins from the inguinal ligament to the popliteal fossa, with documentation of the visualized calf veins. COMPARISON: None. FINDINGS: The common femoral, femoral, popliteal, and the visualized calf veins are normally compressible, and free of intraluminal thrombus. Color and pulse Doppler demonstrate normal phasic intraluminal flow. There is normal augmentation response to distal compression maneuver. Superficial thrombophlebitis is present in the mid/medial lower extremity, at the area palpable concern. IMPRESSION: No findings of lower extremity deep venous thrombosis. Superficial thrombophlebitis. Dictated by: Ruth Majano M.D. on 08/07/2024 at 13:02 Approved by: Ruth Majano M.D. on 08/07/2024 at 13:03
--- NOTE | 2024-08-07 12:21 | ED.LOWEXIN ---
HPI - Extremity Injury (Lower) <Michel Aguirre PA-C - Last Filed: 08/07/24 13:32> General Chief Complaint: Extremity Injury, Lower Stated Complaint: Sent from PCP For posibble blood clot L leg Time Seen by Provider: 08/07/24 12:00 History of Present Illness HPI Narrative: 53-year-old female with past medical history superficial venous thrombosis presents to the ED with 3 days of right lower leg erythema, lump, pain. Patient called her PCP's office this morning, they sent her to the ED for further evaluation. Patient endorses a history of varicose veins, superficial venous thrombosis. No history of DVTs. Patient endorses pain at the site of the lump. No numbness, tingling, weakness. No fever, chills, chest pain, shortness of breath. No trauma. Patient is able to walk normally. Related Data Previous Rx's Medication Instructions Recorded acetaminophen 325 mg tablet 650 mg (2 x 325 mg) PO Q6HR PRN 05/05/19 Pain, Mild (1-3) #14 tabs cephalexin 500 mg capsule 500 mg PO TID 5 days #15 caps 08/07/24 Allergies Allergy/AdvReac Type Severity Reaction Status Date / Time chlorhexidine Allergy Severe Rash Verified 05/17/19 08:57 codeine AdvReac Unknown Nausea Verified 05/17/19 08:57 Review of Systems <Michel Aguirre PA-C - Last Filed: 08/07/24 13:32> Constitutional Constitutional: Denies chills, Denies fatigue, Denies fever(s), Denies frequent falls, Denies lethargy and Denies weakness Eyes Eyes: Denies change in vision, Denies eye discharge, Denies irritation and Denies loss of vision ENT Ears, Nose, Mouth, and Throat: Denies change in voice, Denies dizziness, Denies neck pain, Denies sore throat and Denies throat swelling Cardiovascular Cardiovascular: Denies chest pain, Denies irregular heart rhythm, Denies lightheadedness, Denies palpitations, Denies dyspnea, Denies dyspnea on exertion and Denies orthopnea Respiratory Respiratory: Denies cough, Denies dyspnea, Denies dyspnea on exertion and Denies wheezing Gastrointestinal Gastrointestinal: Denies abdominal pain, Denies change in bowel habits, Denies diarrhea, Denies nausea and Denies vomiting Musculoskeletal Musculoskeletal: Denies neck pain and Denies numbness Comments: Left lower leg lump, swelling, pain, erythema Integumentary/Breasts Skin/Breast: Denies pruritus, Denies erythema, Denies rash and Denies wounds Neurologic Neurologic: Denies behavioral changes, Denies confusion, Denies dizziness, Denies frequent falls, Denies loss of vision, Denies numbness and Denies weakness Psychiatric Psychiatric: Denies anxiety, Denies behavioral changes, Denies confusion, Denies depression, Denies homicidal ideation and Denies suicidal ideation Endocrine Endocrine: Denies fatigue, Denies flushing and Denies palpitations Hematologic/Lymphatic Hematologic/Lymphatic: Denies easy bruising Allergic/Immunologic Allergic/Immunologic: Denies urticaria, Denies throat swelling and Denies wheezing Patient History <Michel Aguirre PA-C - Last Filed: 08/07/24 13:32> Medical History (Updated 08/07/24 @ 13:30 by Michel Aguirre PA-C) Chronic superficial venous thrombosis of both lower extremities Pancreatitis due to common bile duct stone Surgical History (Updated 05/05/19 @ 15:48 by Aline Mason MD) S/P laparoscopic cholecystectomy (03/27/19) Social History household members: family Smoking Status: Never smoker alcohol intake: current Smoking Status: Never smoker alcohol intake frequency: a few times a week Exam <Michel Aguirre PA-C - Last Filed: 08/07/24 13:32> Narrative Exam Narrative: Const General:?cooperative, healthy appearing and comfortable [facility] Head:?normal to inspection Ears:?hearing grossly normal bilaterally Nose:?external nose normal Face and sinus:?normal facial exam and sinuses nontender Mouth:?oral mucosae normal Throat:?posterior oropharynx normal Eyes General:?appearance normal, both eyes and all related structures Neck Neck:?normal visual inspection and no lymphadenopathy noted Resp Effort & Inspection:?normal respiratory effort Auscultation:?clear to auscultation bilaterally Cardio Rate:?regular rate Rhythm:?regular rhythm Musculoskeletal/integumentary There is a small lump in the left lower calf region. It is erythematous, tender to touch. Skin intact. Strength and sensation is intact. Full range of motion. Patient is neurovascularly intact. Neuro General:?patient alert, patient awake and patient oriented x3 Initial Vital Signs Initial Vital Signs: Vital Signs Temperature 97.2 F L 08/07/24 11:30 Pulse Rate 78 08/07/24 11:30 Respiratory Rate 16 08/07/24 11:30 Blood Pressure 160/77 H 08/07/24 11:30 Pulse Oximetry 100 08/07/24 11:30 Oxygen Delivery Method Room Air 08/07/24 11:30 <Michaela Stout DO - Last Filed: 08/07/24 18:49> Initial Vital Signs Initial Vital Signs: Vital Signs Temperature 97.2 F L 08/07/24 11:30 Pulse Rate 78 08/07/24 11:30 Respiratory Rate 16 08/07/24 11:30 Blood Pressure 160/77 H 08/07/24 11:30 Pulse Oximetry 100 08/07/24 11:30 Oxygen Delivery Method Room Air 08/07/24 11:30 Course <Michel Aguirre PA-C - Last Filed: 08/07/24 13:32> Orders Ordered: ED Orders 08/07/24 12:20 US periph venous low extrem lt Stat Vital Signs Vital signs: Vital Signs - 8 hr 08/07/24 11:30 08/07/24 13:37 Temperature 97.2 F L 98.9 F Pulse Rate 78 69 Respiratory Rate 16 18 Blood Pressure 160/77 H 126/74 Pulse Oximetry 100 100 Oxygen Delivery Method Room Air Room Air <DO Jose Alberto Garza Last Filed: 08/07/24 18:49> Orders Ordered: ED Orders 08/07/24 12:20 US periph venous low extrem lt Stat Vital Signs Vital signs: Vital Signs - 8 hr 08/07/24 11:30 08/07/24 13:37 Temperature 97.2 F L 98.9 F Pulse Rate 78 69 Respiratory Rate 16 18 Blood Pressure 160/77 H 126/74 Pulse Oximetry 100 100 Oxygen Delivery Method Room Air Room Air MDM - Extremity Injury (Lower) <TORREY Clemente Last Filed: 08/07/24 13:32> MDM Narrative Medical decision making narrative: 53-year-old female with past medical history superficial venous thrombosis presents to the ED with 3 days of right lower leg erythema, lump, pain. Concern for superficial venous thrombosis versus DVT versus cellulitis versus other. Will obtain ultrasound, reassess. Ultrasound shows superficial thrombophlebitis at the site of the lump. No DVTs. Recommend NSAIDs, elevation. Given there is some overlying erythema, there is some suspicion for cellulitis, will treat with antibiotics. Recommend follow-up with PCP. ED return precautions discussed with patient. Patient verbalized understanding. Medical records reviewed: Yes Discharge Plan Departure Patient Disposition: Home Clinical Impression: Superficial thrombophlebitis Qualifiers: Superficial thrombophlebitis-Involved body area: lower extremity Laterality: left Qualified Code(s): I80.02 - Phlebitis and thrombophlebitis of superficial vessels of left lower extremity Instructions: DI for Superficial Thrombophlebitis Activity Restrictions/Additional Instructions: You were evaluated in the ED today for left-sided lower leg pain. The ultrasound shows superficial thrombophlebitis, which is an inflammation of a superficial vein. No coagulation is indicated for this. This condition is usually treated with NSAIDs such as ibuprofen, elevation of the affected leg. Since there is some overlying redness, will treat with antibiotics in case of any skin infection such as cellulitis. You may take 600 to 800 mg of ibuprofen every 8 hours with food for the next 3-5 days. Please take the medications as prescribed. Please follow-up with your PCP as soon as possible. Return to the ED if you have worsening symptoms, chest pain, shortness of breath. Prescriptions: New cephalexin 500 mg capsule 500 mg PO TID 5 Days Qty: 15 0RF No Action acetaminophen 325 mg Tablet 650 mg PO Q6HR PRN (Reason: Pain, Mild (1-3)) Qty: 14 0RF Referrals: Hayley Carlson ARNP [Primary Care Provider] - Stand Alone Forms: Patient Portal/API/Survey ED Sign-out <Michaela Stout DO - Last Filed: 08/07/24 18:49> Cosign ED Attending Cosignature Attestation: I was immediately available in the department for consultation.
[2024-08-07 13:37] VITALS: BP 126/74; PULSE 69; RESP 18; TEMP 37.2; O2SAT 100
== END 2024-08-07 13:38 | disposition home or self-care (01) ==
PROVIDERS: Emergency Provider Student in an Organized Health Care Education/Training Program; PCP Internal Medicine
DX: I80.02 Phlebitis and thrombophlebitis of superficial vessels of left lower extremity (principal)
CPT/HCPCS: 93971; 99281; 99283

== ENCOUNTER → 2025-04-16 19:34 | Outpatient (CLI) | payer OTHER, SELFPAY ==
[2019-05-03 17:12] VITALS: BMI 20.5
--- NOTE | 2025-04-16 19:35 | DI.MRI.S_ITS ---
PROCEDURE: MR WRIST LT WO CON INDICATIONS: Pain in left wrist TECHNIQUE: Noncontrast coronal proton density fast spin echo and T2 fast spin echo with fat saturation; coronal 3-D gradient echo, axial T1 spin echo and T2 fast spin echo with fat saturation, sagittal T1 spin echo through the wrist. COMPARISON: None. FINDINGS: Image quality: Excellent. Bones and cartilage: The carpal bones are normally aligned. No bone marrow contusions or fractures. No evidence for avascular necrosis. Early marginal osteophyte formation, subchondral cystic degenerative change and cartilage thinning at the basal joint and triscaphe joint and diffuse form for questionable articulation. Degenerative cysts in the lunate. Carpal ligaments: The scapholunate and lunotriquetral ligaments appear intact. In the absence of intra-articular contrast, the extrinsic carpal ligaments are not well identified. On sagittal images, the pisohamate ligament appears intact. Triangular fibrocartilage complex: The triangular fibrocartilage appears intact. The adjacent meniscal homolog appears normal in the absence of intra-articular contrast. The extensor carpi ulnaris tendon is normal in location and morphology. Tendons and soft tissues: The carpal tunnel structures appear normal, including the median nerve. The ulnar nerve appears normal within Guyon's canal. All six extensor tendon compartments demonstrate normal morphology, without pathologic tendon sheath fluid. No soft tissue ganglion cysts. IMPRESSION: Mild degenerative changes. Dictated by: Shakir Madden M.D. on 04/17/2025 at 9:06 Approved by: Shakir Madden M.D. on 04/17/2025 at 9:18
== END ==
LOC: MRI 19:34
PROVIDERS: PCP Internal Medicine; Referring Provider Family Medicine; Visit Provider Family Medicine
DX: M25.532 Pain in left wrist (principal); G89.29 Other chronic pain
CPT/HCPCS: 73221